=== PATIENT | male | born 1990 | race Caucasian/White ===

== ENCOUNTER 2024-12-19 16:13 | Emergency (ER) | payer MEDICAID, SELFPAY ==
[2024-12-19 16:13] VITALS: BP 134/86; PULSE 92; RESP 15; TEMP 36.6; O2SAT 98; BMI 22.3
--- NOTE | 2024-12-19 16:27 | EX.ED.DYSGE1 ---
HPI History of Present Illness Chief Complaint: Rash Informant: patient Onset/Context/Timing Onset: Days (3-4) Context: Sudden Onset Timing: Continuous Quality: Burning, stabbing Location: Right back and lower chest Worsened by: Nothing Relieved by: Nothing Narrative Narrative: Patient presents with a rash that has been constant for the past 3 to 4 days. Patient states it started on his back and is now starting to migrate around to his right lower chest area. Patient describes it as burning and stabbing. Patient admits to some blister formation. Patient denies any discharge or drainage. Patient denies any fevers or chills. Patient states he went to an urgent care last night and was told it was a staph infection. Patient was given a prescription for doxycycline. Patient is concerned this could be shingles. PFSH [facility] Medical History no medical history no medical history Home Medications ?Medication ?Instructions ?Recorded ?Last Taken ?Type acyclovir 800 mg tablet 800 mg PO 5X/DAY #35 TABLETS 12/19/24 Unknown Rx Allergy/AdvReac Type Severity Reaction Status Date / Time Sulfa (Sulfonamide Allergy Severe Rash Verified 12/19/24 16:16 Antibiotics) Family History no significant family his Surgical History no surgical history no surgical history Social History (Updated 12/19/24 @ 16:[address] Jose E Cifuentes, DO) Smoking Status: Never smoker Smokeless tobacco user: snuff ROS ROS ED Constitutional Constitutional ED: Denies chills or fever(s) Eyes Eyes: Denies blurry vision or change in vision ENT ENT ED: Reports sore throat; Denies rhinorrhea Cardiovascular Cardiovascular: Reports chest pain; Denies palpitations Respiratory/Chest Respiratory/Chest: Denies cough or dyspnea Gastrointestinal Gastrointestinal: Denies nausea or vomiting Genitourinary Genitourinary ED: Denies dysuria or hematuria Musculoskeletal Musculoskeletal: Reports back pain; Denies neck pain Integumentary Reports rash; Denies abscess Neurologic Neurologic: Denies headache(s) or weakness Allergic/Immunologic Allergic/Immunologic ED: Denies mouth swelling or urticaria EXAM Physical Exam Const Vital Signs: 12/19/24 16:13 Temperature 98 F Temperature Source Oral Pulse Rate 92 Respiratory Rate 15 Blood Pressure 134/86 H Blood Pressure Mean 102 Pulse Ox 98 Oxygen Delivery Method Room Air Positive well nourished and well developed General Appearance ED: well developed and NAD HEENT Reports moist mucous membranes Neck supple and no JVD GI non-tender and non-distended Palpation: soft Extremity normal to inspection General Extremety ED: Negative for edema or tenderness General Extremity: Negative for edema Neuro oriented x3, CN's II-XII intact bilaterally and no sensory deficits noted Sensorium / Orientation: alert Motor Exam: strength 5/5 throughout Psych mental status grossly normal Skin Skin Narrative: There is a patchy erythematous macular rash along the right T7 dermatome. There is mild tenderness to palpation. There are no vesicles or pustules. There is no discharge or drainage noted. There are no petechia noted. There is no involvement of the palms or soles. There is no involvement of mucous membranes. MDM MDM MDM Narrative Medical decision making narrative: Patient was advised that this is most likely shingles. Patient was given a prescription for acyclovir. Patient was instructed to use Tylenol or ibuprofen as needed for pain. Patient was also instructed to use Zostrix cream as needed for pain. Patient was instructed to follow-up with a primary care physician in 5 to 7 days. Patient was instructed to return if worse in any way. Patient understood and was agreeable with the plan. All questions were answered. Discharge Plan Triage Chief Complaint: Rash ED Provider: Jose E Cifuentes Dx/Rx/DC Orders Clinical Impression: Varicella zoster Instructions: ED Shingles (Herpes Zoster) Prescriptions: New acyclovir 800 mg tablet 800 mg PO 5X/DAY Qty: 35 0RF Primary Care Provider: Care Physician,No Primary Referrals: Gonzales Gamboa MD [[employer]] - 5-7 Days Care Physician,No Primary [Primary Care Provider] - Activity Restrictions/Additional Instructions: You may use Zostrix cream as needed for pain. You may take Tylenol or ibuprofen as needed for pain as well. Print Language: Gambian Disposition Disposition: Home, Self Care
[2024-12-19 16:44] VITALS: BP 134/86; PULSE 92; RESP 15; TEMP 36.6; O2SAT 98
== END 2024-12-19 16:44 | disposition home or self-care (01) ==
LOC: ED 16:41
PROVIDERS: Emergency Provider Emergency Medicine; Visit Provider Emergency Medicine
DX: R21 Rash and other nonspecific skin eruption (principal)
CPT/HCPCS: 99282

== ENCOUNTER 2025-01-06 19:15 | Emergency (ER) | payer MEDICAID, SELFPAY ==
[2025-01-06 19:17] VITALS: PULSE 95; RESP 16; TEMP 36.2; O2SAT 100; BMI 22.4
--- NOTE | 2025-01-06 20:45 | US_ITS ---
PROCEDURE: GALLBLADDER 01/06/2025 REASON FOR EXAM: Pain after eating Duration: 2 weeks COMPARISON: None. FINDINGS: Liver: Unremarkable. No intrahepatic ductal dilatation. Normal hepatic color flow. Gallbladder: Gallbladder length is 5.1 cm. Gallbladder is contracted. Sonographic Batres's sign is absent. No gallstones detected. No pericholecystic fluid. Gallbladder wall: 2 mm. Common bile duct: 6 mm . Pancreas: Normal. Other: Right kidney demonstrates normal length, size and cortex. No calculi identified. Kidney measures 9.8 cm x 4.3 cm x 3.8 cm. Right renal pelvis 9.8 mm. This may be an extrarenal pelvis. US/Gallbladder IMPRESSION: No acute process detected. Normal gallbladder. Reading [facility]
--- NOTE | 2025-01-06 20:46 | EDS_ITS ---
HPI HPI - GI History of Present Illness Chief Complaint: Abd Pain Narrative Narrative: 34-year-old male who denies significant past medical history presents with right upper quadrant abdominal pain that he has been having intermittently for the last week. He has not noticed that it is directly related to food intake. However, he states that last night he ate spaghetti, and he awoke in the middle of the night with his mouth watering and him feeling nauseated. He has not vomited. He denies any fevers or chills, no radiation of the pain but it is up under his right rib cage. No recent diarrhea. No prior abdominal surgeries. He does state that a few people have noticed that they thought he had scleral icterus. No exacerbating or alleviating factors. Sometimes the pain is sharp and stabbing, and other times it is dull and achy. PFSH PFSH Medical History no medical history Home Medications ?Medication ?Instructions ?Recorded ?Last Taken ?Type NK 01/06/25 Unknown History Allergy/AdvReac Type Severity Reaction Status Date / Time Sulfa (Sulfonamide Allergy Severe Rash Verified 01/06/25 19:16 Antibiotics) Social History Smoking Status: Never smoker Smokeless tobacco user: snuff ROS ROS ED ROS Narrative Review of systems positive for right upper quadrant abdominal pain associated with nausea, no fevers or chills, no diarrhea. No exacerbating or alleviating factors. Described as sharp and stabbing and sometimes dull and achy. EXAM Physical Exam Narrative Exam Narrative: Afebrile. Vital signs noted. Nontoxic-appearing. No scleral icterus appreciated. PERRL, EOMI. Neck soft and supple without meningismus. Cardiovascular examination regular rate and rhythm. Lungs clear to auscultation bilaterally. Abdomen is soft with mild tenderness to palpation in the right upper quadrant. Negative Batres sign/difficult to elicit. No rebound or guarding. Positive bowel sounds. Const Vital Signs: 01/06/25 19:17 01/06/25 21:10 01/06/25 21:10 Temperature 97.2 F L Temperature Source Temporal Pulse Rate 95 75 Respiratory Rate 16 16 Blood Pressure 118/73 118/72 Blood Pressure Mean 88 87 Pulse Ox 100 99 MDM MDM MDM Narrative Medical decision making narrative: The differential diagnosis includes but not limited to acute cholecystitis versus pancreatitis versus nonspecific abdominal pain versus hepatitis. Comprehensive workup was pursued. I reviewed his laboratory work and he has normal white count of 10.4 with hemoglobin normal at 15.1, hematocrit 43.4, platelet count normal at 283. CMP shows normal sodium, normal potassium, normal chloride, BUN of 9 and creatinine 1.06. LFTs grossly unremarkable. Total bilirubin normal at 0.27. Lipase normal at 31 so I doubt pancreatitis. Urinalysis obtained and there is no evidence of ketones, no dehydration, no infection. I do not feel antibiotics are indicated. Ultrasound of the right upper quadrant is currently pending. Patient will be signed out to Dr. Jairon Wray to check the ultrasound and make final disposition on this patient which I anticipate would be discharged given normal findings. Patient is in stable condition. Lab Data Attestation: I reviewed the patient's lab results. Labs: Laboratory Results - last 24 hr 01/06/25 01/06/25 20:38 20:53 WBC 10.4 RBC 5.04 Hgb 15.1 Hct 43.4 MCV 86.1 MCH 30.0 MCHC 34.8 RDW Std Deviation 39.4 RDW Coeff of [place] 12.8 Plt Count 283 MPV 8.6 Immature Gran % (Auto) 0.400 Neut % (Auto) 67.2 Lymph % (Auto) 23.2 [place] % (Auto) 6.9 Eos % (Auto) 1.4 Baso % (Auto) 0.9 Absolute Neuts (auto) 7.0 Absolute Lymphs (auto) 2.40 Nucleated RBC % 0 Sodium 142 Potassium 3.6 Chloride 105 Carbon Dioxide 23.5 Anion Gap 13 BUN 9 Creatinine 1.06 Estim Creat Clear Calc 93.86 Est GFR (MDRD) Non-Af 95 BUN/Creatinine Ratio 8.9 L Glucose 77 Calcium 9.7 Total Bilirubin 0.27 AST 23 ALT 13 Alkaline Phosphatase 73 Total Protein 8.0 Albumin 4.5 Globulin 3.5 Albumin/Globulin Ratio 1.3 Lipase 31 Urine Color Yellow Urine Clarity Clear Urine pH 7.0 Ur Specific [place] 1.015 Urine Protein 15 H Urine Glucose (UA) Normal Urine Ketones Negative Urine Occult Blood Negative Urine Nitrite Negative Urine Bilirubin Negative Urine Urobilinogen Normal Ur Leukocyte Esterase Negative Urine RBC 0-5 SEEN Urine WBC 0-5 SEEN Ur Squamous Epith Cells 0-5 SEEN Urine Bacteria 0 SEEN Urine Mucus 0 SEEN Discharge Plan Triage Chief Complaint: Abd Pain ED Provider: Harsh Forrest Dx/Rx/DC Orders Clinical Impression: Abdominal pain, right upper quadrant, Nausea Instructions: ED Abdominal Pain Unkn Cause Male... Prescriptions: No Action NK Primary Care Provider: Care Physician,No Primary Referrals: Care Physician,No Primary [Primary Care Provider] - Print Language: Andorran
[2025-01-06 20:52] LABS: Hematocrit 43.4 % (40-54); Hemoglobin 15.1 g/dL (13.0-16.5); Immature Granulocytes Count 0.040 X10^3/uL (0.0-0.0); Mean Corp Hgb Conc 34.8 g/dL (32-36); Mean Corpuscular Volume 86.1 fL (80-94); Mean Platelet Vol. 8.6 fl (6.2-12.0); NRBC Flagged by Analyzer 0 % (0-5); Platelet Count 283 K/mm3 (150-450); RBC Distribution Width CV 12.8 % (11.6-14.6); RBC Distribution Width SD 39.4 fl (35.1-43.9); Red Blood Count 5.04 M/mm3 (4.6-6.2); White Blood Count 10.4 K/mm3 (4.4-11.0)
--- OUTSIDE RECORDS SUMMARY | 2025-01-06 21:00 | XMS RPT_ITS | CCD ---
Author Organization [facility] TRUSS DESIGNER [facility] Care Team Providers Care Wrapping Machine Tender Name Role Phone Unavailable Primary Care Provider Unavailabl e PROVIDER, UNKNOWN Attending Unavailable PROVIDER, UNKNOWN Admitting Unavailable PATIENT, SELF Referring Unavailable PHYSICIAN, PATIENT UNSURE Primary Care Physician Unavailable SUSHMA SOTELO DO Primary Care Unavailable DIDSUSHMA SNEED DO Attending Unavailable UNGERERGEORGE INFORMATION OPERATOR Consulting Unavailable UNGERERGEORGE INFORMATION OPERATOR Referring Unavailable DIDSUSHMA SNEED DO Admitting Unavailable PROVIDER, UNKNOWN Consulting Unavailable SHAILA ZAMUDIO DO Admitting Unavailable SHAILA ZAMUDIO DO Primary Care Unavailable SHAILA ZAMUDIO DO Attending Unavailable STEFANO PEDRAZA MD Admitting Unavailable STEFANO PEDRAZA MD Primary Care Unavailable STEFANO PEDRAZA MD Attending Unavailable UNGERER, GEORGE INFORMATION OPERATOR Consulting Unavailable UNGERER, GEORGE INFORMATION OPERATOR Referring Unavailable PROVIDER, UNKNOWN Consulting Unavailable DIDSUSHMA SNEED DO Attending Unavailable UNGERER, GEORGE INFORMATION OPERATOR Consulting Unavailable UNGEREHilda, GEORGE INFORMATION OPERATOR Referring Unavailable SUSHMA SOTELO DO Admitting Unavailable DIDSUSHMA SNEED DO Primary Care Unavailable PROVIDER, UNKNOWN Consulting Unavailable PHYSICIAN, PATIENT UNSURE Primary Care Unavai CELESTINO Rosenberg Attending Unavail able CELESTINO NGO Attending Unavail able PHYSICIAN, PATIENT UNSURE Primary Care Unavai lable PHYSICIAN, PATIENT UNSURE Primary Care Unavai lable CELESTINO NGO Attending Unavail able Care Physician, No Primary Primary Care Provider Unavailable Dr. Jose E Cifuentes DO Emergency Provider Jose E Cifuentes Attending Unavailable Care Physician, No Primary Primary Care Unava ilable Allergies Allergy Classification Reported Allergen(s) Allergy Type Date of Onset Reaction(s) Facility (2 sources) Sulfonamides (Antibiotic); Translations: [SULFA ANTIBIOTICS] Propensity to adverse reactions to drug 2 Rash, [facility]: (2 sources) Sulfonamide; Translations: [sulfa drugs] Drug allergy [facility] (1 source) Sulfonamides (Antibiotic) Drug allergy (disorder) [facility] Repository (1 source) Sulfonamides (Antibiotic) Allergy to substance [address] [place] [address] (1 source) Sulfonamides (Antibiotic) Drug allergy (disorder) [address] [place] [address] Repository Medications Current Medications Medication Drug Class(es) Dates Sig (Normalized) Sig (Original) 0.16 ML buprenorphine 50 MG/ML Prefilled Syringe [Brixadi] (2 sources) Start: 10-20-2024 Brixadi Weekly 8 mg/0.16 mL subcutaneous solution, extended release 0 Refill(s) Start Date: 10/20/24 Status: Ordered Repeat number: 1 acyclovir 800 mg oral tablet (1 source) Herpesvirus Nucleoside Analog DNA Polymerase Inhibitor, Herpes Simplex Virus Nucleoside Analog DNA Polymerase Inhibitor, Herpes Zoster Virus Nucleoside Analog DNA Polymerase Inhibitor Start: 12-19-2024 take 1 tablet by mouth five times daily Acyclovir 800 mg tablet Active 800 mg PO 5 TIMES DAILY 35 0 December 19, 2024 12:00am ciprofloxacin 500 mg oral tablet (1 source) Quinolone Antimicrobial Start: 10-20-2024 End: 11-03-2024 Cipro 500 mg oral tablet Dose : 500 mg = 1 tab(s), Oral, q12h, X 14 day(s), # 28 tab(s), 0 Refill(s), 11/03/24 3:35:00 PM EDT, Pharmacy: [id number], Dysuria Pelvic pain in male, 172.7, cm, 10/20/24 15:01:00 EDT, Height, 67.7, kg, 10/20/24 15:01:00 EDT, Dosing Weight Start Date: 10/20/24 Stop Date: 11/03/24 Status: Ordered Quantity: 28.0 Unit: tab(s) Repeat number: 1 Indications: Pelvic and perineal pain; Dysuria; traZODone hydrochloride 100 mg oral tablet (2 sources) Serotonin Reuptake Inhibitor Start: 10-20-2024 take 1 tablet by mouth once daily at bedtime traZODone 100 mg oral tablet TAKE 1 TABLET BY MOUTH EVERY DAY AT BEDTIME Start Date: 10/20/24 Status: Ordered Repeat number: 1 Problems Active Problems Problem Classification Problem Date Documented Da te Episodic/Chronic Abdominal pain (1 source) Pain in pelvis; Translations: [Pelvic and perineal pain] Episodic Calculus of urinary tract (2 sources) Ureteric stone 10-20-2024 Episodic Genitourinary symptoms and ill-defined conditions (2 sources) Dysuria 10-20-2024 Episodic Other gastrointestinal disorders (2 sources) Constipation 10-20-2024 Episodic Other injuries and conditions due to external causes (2 sources) Retained stone or crystalline fragments; Translations: [Retained stone or crystalline fragments] Onset: 10-20-2024 Episodic Other male genital disorders (3 sources) Hemospermia; Translations: [Hematospermia] Episodic Other skin disorders (1 source) Rash and other nonspecific skin eruption; Translations: [Rash and other nonspecific skin eruption] Onset: 12-25-2024 Episodic Unclassified (2 sources) Finding of sensation of bladder 10-20-2024 Viral infection (1 source) Varicella-zoster virus infection; Translations: [Zoster without complications] 12-19-2024 Episodic Past or Other Problems Problem Classification Problem Date Documented Date Episodic/Chronic Nonspecific chest pain (3 sources) Other chest pain; Translations: [Other chest pain] Onset: 05-08-2024 Episodic Other diseases of kidney and ureters (4 sources) Hydronephrosis with renal and ureteral calculous obstruction; Translations: [Hydronephrosis with renal and ureteral calculous obstruction] Onset: 05-08-2024 Episodic Results Test Name Value Interpretation Reference Range Facility Emergency Department Summary on 12-19-2024 Emergency Department Summary [facility] Medical Records Department [address] [place] [id number] Emergency Department Summary 12/19/24 MR#: [id number] Acct: [id number] Name: FLORECITA SPEARS Rep #: [id number] : 1990 34 From: Jose E Cifuentes DO PCP: Care Physician,No Primary Status:DEP ER Location: ED HPI History of Present Illness Chief Complaint: Rash Informant: patient Onset/Context/Timing Onset: Days (3-4) Context: Sudden Onset Timing: Continuous Quality: Burning, stabbing Location: Right back and lower chest Worsened by: Nothing Relieved by: Nothing Narrative Narrative: Patient presents with a rash that has been constant for the past 3 to 4 days. Patient states it started on his back and is now starting to migrate around to his right lower chest area. Patient describes it as burning and stabbing. Patient admits to some blister formation. Patient denies any discharge or drainage. Patient denies any fevers or chills. Patient states he went to an urgent care last night and was told it was a staph infection. Patient was given a prescription for doxycycline. Patient is concerned this could be shingles. PFSH PFSH Medical History no medical history no medical history Home Medications ???Medication ???Instructions ???Recorded ???Last Taken ???Type acyclovir 800 mg tablet 800 mg PO 5X/DAY #35 TABLETS 12/19 Unknown Rx Allergy/AdvReac Type Severity Reaction Status Date / Time Sulfa (Sulfonamide Allergy Severe Rash Verified 12/19/24 16:16 Antibiotics) Family History no significant family his Surgical History no surgical history no surgical history Social History (Updated 12/19/24 @ 16:[address] Jose E Cifuentes, DO) Smoking Status: Never smoker Smokeless tobacco user: snuff ROS ROS ED Constitutional Constitutional ED: Denies chills or fever(s) Eyes Eyes: Denies blurry vision or change in vision ENT ENT ED: Reports sore throat; Denies rhinorrhea Cardiovascular Cardiovascular: Reports chest pain; Denies palpitations Respiratory/Chest Respiratory/Chest: Denies cough or dyspnea Gastrointestinal Gastrointestinal: Denies nausea or vomiting Genitourinary Genitourinary ED: Denies dysuria or hematuria Musculoskeletal Musculoskeletal: Reports back pain; Denies neck pain Integumentary Reports rash; Denies abscess Neurologic Neurologic: Denies headache(s) or weakness Allergic/Immunologic Allergic/Immunologic ED: Denies mouth swelling or urticaria EXAM Physical Exam Const Vital Signs: 12/19/24 16:13 Temperature 98 F Temperature Source Oral Pulse Rate 92 Respiratory Rate 15 Blood Pressure 134/86 H Blood Pressure Mean 102 Pulse Ox 98 Oxygen Delivery Method Room Air Positive well nourished and well developed General Appearance ED: well developed and NAD HEENT Reports moist mucous membranes Neck supple and no JVD GI non-tender and non-distended Palpation: soft Extremity normal to inspection General Extremety ED: Negative for edema or tenderness General Extremity: Negative for edema Neuro oriented x3, CN's II-XII intact bilaterally and no sensory deficits noted Sensorium / Orientation: alert Motor Exam: strength 5/5 throughout Psych mental status grossly normal Skin Skin Narrative: There is a patchy erythematous macular rash along the right T7 dermatome. There is mild tenderness to palpation. There are no vesicles or pustules. There is no discharge or drainage noted. There are no petechia noted. There is no involvement of the palms or soles. There is no involvement of mucous membranes. MDM MDM MDM Narrative Medical decision making narrative: Patient was advised that this is most likely shingles. Patient was given a prescription for acyclovir. Patient was instructed to use Tylenol or ibuprofen as needed for pain. Patient was also instructed to use Zostrix cream as needed for pain. Patient was instructed to follow-up with a primary care physician in 5 to 7 days. Patient was instructed to return if worse in any way. Patient understood and was agreeable with the plan. All questions were answered. Discharge Plan Triage Chief Complaint: Rash ED Provider: Jose E Cifuentes Dx/Rx/DC Orders Clinical Impression: Varicella zoster Instructions: ED Shingles (Herpes Zoster) Prescriptions: New acyclovir 800 mg tablet 800 mg PO 5X/DAY Qty: 35 0RF Primary Care Provider: Care Physician,No Primary Referrals: Gonzales Gamboa MD [Med Staff - Landscape Crew Member] - 5-7 Days Care Physician,No Primary [Primary Care Provider] - Activity Restrictions/Additiona l Instructions: You may use Zostrix cream as needed for pain. You may take Tylenol or ibuprofen as needed for pain as well. Print Language: Serbian Disposition Disposition: Home, Michelle (more content not included)... Normal [facility] CT ABDOMEN/PELVIS W/O CONTRA Annita 11-14-2024 CT ABDOMEN/PELVIS W/O CONTRAST ORIGINAL EXAMINATION: CT OF THE ABDOMEN AND PELVIS WITHOUT CONTRAST11/14/2024 1:49 pm TECHNIQUE: CT of the abdomen and pelvis was performed without the administration of intravenous contrast. Multiplanar reformatted images are provided for review. Automated exposure control, iterative reconstruction, and/or weight based adjustment of the mA/kV was utilized to reduce the radiation dose to as low as reasonably achievable. COMPARISON: None HISTORY: ORDERING SYSTEM PROVIDED HISTORY: Reason for Exam: hx of kidney stones, persistent dysuria, feels he has not passed stones FINDINGS: The included lung bases are clear. There is no visible pleural or pericardial effusion. The heart is normal in size. The liver, spleen, adrenal glands, kidneys, gallbladder and pancreas are within normal limits. The large and small bowel are normal in course and caliber. Mild sigmoid diverticulosis observed without acute inflammatory changes. The appendix is normal. No free intraperitoneal fluid or air is identified. The aorta is normal in caliber. There is no lymphadenopathy. The prostate is normal. There is no visible fracture or aggressive osseous lesion. IMPRESSION: 1. No acute intra-abdominal or pelvic process. 2. Mild sigmoid diverticulosis. Interpreted by: Dylan Wood DO Preliminary Report By: Dylan Wood DO Electronically signed By Dylan Wood DO Dictated Date: 11/14/2024 1:55:57 PM Prelim Date: 11/14/2024 1:59:34 PM Sign Date: 11/14/2024 1:59:34 PM Ordering Provider: CELESTINO HAMM Interpreted by: Dylan Wood DO Preliminary Report By: Dylan Wood DO Electronically signed By Dylan Wood DO Dictated Date: 11/14/2024 1:55:57 PM Prelim Date: 11/14/2024 1:59:34 PM Sign Date: 11/14/2024 1:59:34 PM Ordering Provider: CELESTINO HAMM [facility] 10-28-2024 CaOx Dihydrate 50 % [facility] Comment on above: Result Comment: Perf ormed At: [facility] [id number] Makenzie Belle PhD Ph:[phone] Performed By: #### [id number] #### [place] [address] CaOx Monohydrate 50 % [facility] Comment on above: Performed By: #### 9 [id number] #### [place] [address] Color-Stone Brown [facility] Comment on above: Performed By: #### 9 [id number] #### [place] [id number] Size-Stone 2x2 [facility] Comment on above: Result Comment: Leo alexander piece received. Performed By: #### 9 [id number] #### [facility] [address] [place] [id number] Source-Stone Comment [facility] Comment on above: Result Comment: Not provided Performed By: #### 9 [id number] #### [facility] [address] [place] [id number] Weight-Stone 2 mg [facility] Comment on above: Performed By: #### 9 [id number] #### [facility] [address] [place] [address] ED MED ADMINISTRATION DETAIL on 10-21-2024 ED MED ADMINISTRATION DETAIL Straddle Carrier Operator Medication Administration Record [address] [place] [address] [id number] 10/21/2024 Patient: FLORECITA SPEARS Sex: Male : 1990 Age: 34y MEASUREMENTS: Wt: 68.0 kg, Ht/Honorio: 68.0 in, BMI: 22.81 ALLERGIES: Sulfa (Sulfonamide Antibiotics) Medication Ordered Medication Administration Date/Time Tdap IM 22:36 10/21 Tdap IM DIPTH/TETANUS/PERT > 7yr and older 0.5 Given DIPTH/TETANUS/P mL given. (Lot#: [id number], expiration date: 01/12/2027, kettle worker: 22:36 10/21/2024 ERT > 7yr and older Aula 7). Given in the left deltoid. Allergies verified and Stephanie Bennett R.N. 0.5 mL (NOW x1) confirmed 5 rights. Information reviewed with patient. Verbalizes Scanned understanding. Vaccine information statement (10/21/2024) provided to the patient. - 22:36 Stephanie Bennett R.N. Triple Antibiotic Completed Oint 22:42 10/21/2024 (Zkwl-Uzga-Ppwf B) Stephanie Bennett R.N. 1 applic Order Comments: 22:42 10/21/2024 Order Completed Stephanie Bennett R.N. 1 of 1 Normal [facility] ED NURSES CLINICAL NOTEon ED NURSES CLINICAL NOTE Nurse Narrative Nurse Clinical Narrative [address] [place] [address] [phone] 10/21/2024 22:03:00 [id number] Sex[facility] Male : 1990 Age: 34y Disposition: Discharge to Home Disposition Decision Time: 22:41 10/21/2024 Departure Time: 22:53 10/21/2024 TRIAGE Arrived by private vehicle. Historian: (patient). Unaccompanied. Triage time: 22:01 10/21/2024. Acuity: LEVEL 4. Chief Complaint: DOG BITE. Location of injuries: nose. Occurred 21:00 10/21/2024. Circumstances: This was an unprovoked attack. The animal reportedly appeared well and the immunization status of the animal is unknown. SEPSIS SCREEN: NEGATIVE. SIRS criteria negative. No possible sources of infection. -- 22:16 10/21/24 BRIAN Bennett R.N. 22:11 10/21/24. BP: 124/89 MAP: 101. HR: 84. RR: 14. O2 saturation: 97% Temperature: 98.3 F. -- 22:12 10/21/24 BRIAN Bennett R.N. 22:17 10/21/24. Pain level now 9/10. -- 22:17 10/21/24 BRIAN Bennett R.N. Measurements: 22:16 10/21/24 Wt: 68.0 kg, Ht/Honorio: 68.0 in, BMI: 22.81 -- 22:16 10/21/24 BRIAN eBnnett R.N. Medications: ciprofloxacin 500 mg tablet -- 22:18 10/21/24 BRIAN Bennett R.N. 1 of 3 Nurse Narrative Allergies: Sulfa (Sulfonamide Antibiotics) -- 22:14 10/21/24 BRIAN Bennett R.N. Problems: no known problem -- 22:15 10/21/24 BRIAN Bennett R.N. Surgeries: no known surgical history -- 22:15 10/21/24 BRIAN Bennett R.N. History 22:01 10/21/24. SOCIAL HX: Never smoker. No alcohol use or drug use. The patient has not traveled outside the [place] Infectious disease exposure: No infectious disease exposure. ABUSE ASSESSMENT: The patient answered yes to the question(s) Do you feel safe in your home? and no to the question(s) Are you afraid to go home?. SELF HARM ASSESSMENT: Self harm assessment was performed. The patient answered no to the question(s) Have you recently felt down, depressed, or hopeless? and Do you have thoughts of harming or killing yourself?. FALL RISK ASSESSMENT: Fall risk assessment completed. No risk factors identified. -- 22:16 10/21/24 BRIAN Bennett R.N. Interventions 22:01 10/21/24. Identification band and allergy band on patient. -- 22:16 10/21/24 BRIAN Bennett R.N. PHYSICAL ASSESSMENT 22:05 10/21/24. Ambulatory to room. GENERAL / NEURO / PSYCH: Alert. Oriented X 4. Appears in no acute distress. HEENT: Pupils equal, round and reactive to light. Nose: tenderness, swelling and subcutaneous laceration. RESPIRATORY: Respirations not labored. 2 of 3 Nurse Narrative GI / : Abdomen soft and nontender. EXTREMITIES: Extremities exhibit normal ROM. Neuro-vascular status intact to the extremity. SKIN: Skin is warm and dry. No signs or symptoms of infection. -- 22:55 10/21/24 BRIAN Bennett R.N. NURSING PROGRESS NOTES 22:15 10/21/24. ( Dog bite form faxed to [facility] and [facility] at this time). -- 22:57 10/21/24 BRIAN Bennett R.N. 22:36 10/21/24. Tdap IM DIPTH/TETANUS/PERT > 7yr and older 0.5 mL given. (Lot#: [id number], expiration date: 01/12/2027, kettle worker: Aula 7). Given in the left deltoid. Allergies verified and confirmed 5 rights. Information reviewed with patient. Verbalizes understanding. Vaccine information statement (10/21/2024) provided to the patient. -- 22:36 10/21/24 BRIAN Bennett R.N. 22:40 10/21/24. ( Nose cleaned, ointment and bandage applied to nose). -- 22:55 10/21/24 BRIAN Bennett R.N. DISPOSITION / DISCHARGE Departure time: 22:53 10/21/2024. -- 22:53 10/21/24 EDT Stephanie Bennett R.N. 22:53 10/21/24. Condition at departure: stable. No learning barriers present. Reviewed medication(s). Reviewed referral to a primary care physician. Patient verbalized understanding. Written instructions provided in Serbian. The patient was discharged home and accompanied by gambling counsellor. The patient left ambulatory and via private vehicle. Staff Pharmacist driving. -- 22:53 10/21/24 EDT Stephanie Bennett R.N. (Electronically signed by Stephanie Bennett R.N. 10/21/24 22:57:28 EDT) Generated by [facility] 3 of 3 Normal [facility] ED ORDER SHEET (CPOE ONLY)on 10-21-2024 ED ORDER SHEET (CPOE ONLY) Order Sheet Order Sheet [address] [address] [id number] 10/21/2024 Patient: FLORECITA SPEARS Sex: Male : 1990 Age: 34y MEASUREMENTS: Wt: 68.0 kg, Ht/Honorio: 68.0 in, BMI: 22.81 ALLERGIES: Sulfa (Sulfonamide Antibiotics) MEDICATION/IV/DRIP/FLU ID ORDERS Order Description Priority Entered Acknowledged Completed Tdap IM DIPTH/TETANUS/PERT 22:25 10/21/2024 22:36 > 7yr and older0.5 mL (NOW x1) Shaila Zamudio D.O. 10/21/2024 Stephanie Bennett R.N. Triple Antibiotic Oint 22:25 10/21/2024 22:42 (Isdr-Dyzr-Rxsj B)1 applic Shaila Zamudio D.O. 10/21/2024 (NOW x1) Stephanie Bennett R.N. Order Comments: 22:42 10/21/2024: Order Completed Stephanie Bennett R.N. LAB ORDERS Order Description Priority Entered Acknowledged Collected Completed DIAGNOSTIC STUDY ORDERS Order Description Priority Entered Acknowledged Completed STAFF ORDERS Order Description Priority Entered Acknowledged Collected Completed 1 of 2 Order Sheet [Electronically signed by Shaila Zamudio D.O. (10/21/2024 22:25 EDT)] [Electronically signed by Shaila Zamudio D.O. (10/21/2024 22:25 EDT)] [Electronically signed by Shaila Zamudio D.O. (10/21/2024 22:58 EDT)] 2 of 2 Normal [facility] ED PHYSICIAN CLINICAL REPORT on 10-21-2024 ED PHYSICIAN CLINICAL REPORT Narrative Physician Clinical Narrative [facility] [address] [place] [address] [phone] 10/21/2024 22:03:00 Patient: FLORECITA SPEARS Sex: Male : 1990 Age: 34y Disposition: Discharge to Home Disposition Decision Time: 22:41 10/21/2024 Departure Time: 22:53 10/21/2024 Measurements Wt: 68.0 kg, Ht/Honorio: 68.0 in, BMI: 22.81 Initial Vital Sign Measured Time BP MAP HR RR O2Sat ETCO2 Temp Pain GCS RTS 22:11 10/21/2024 124/89 101 84 14 97% 98.3 F Time Seen: 22:23 10/21/2024. Arrived- By private vehicle. Historian- patient. HISTORY OF PRESENT ILLNESS Chief Complaint: DOG BITE. Location of injuries- nose. The injury occurred just prior to arrival. The animal reportedly appeared well, is up to date on immunizations and can be observed for ten days. Occurred at neighbor's house. Patient approached animal. REVIEW OF SYSTEMS CONSTITUTIONAL: No fever or chills. MUSCULOSKELETAL: No swelling. NEUROLOGICAL: No weakness. PAST HISTORY See nurses notes. 1 of 3 Narrative no known problem Surgeries: no known surgical history Medications: ciprofloxacin 500 mg tablet Allergies: Sulfa (Sulfonamide Antibiotics) SOCIAL HISTORY Never smoker. Alcohol use. Drug use. ADDITIONAL NOTES The nursing notes have been reviewed. PHYSICAL EXAM Appearance: Alert. No acute distress. Head: (abrasion present to tip of nose. No active bleeding.). Eyes: Eyes normal inspection. Neck: Normal inspection. CVS: Heart sounds normal. Pulses normal. Respiratory: Breath sounds normal. Chest nontender. Abdomen: Normal inspection. Soft and nontender. Skin: Skin intact. Skin warm and dry. Normal skin color. Normal skin turgor. Extremities: Extremities atraumatic. Neuro: Oriented X 3. PROGRESS AND PROCEDURES Course of Care: Patient is stable. Differential Diagnosis: 2 of 3 Narrative Other possible considerations: Dog bite versus laceration versus infection. MEDICAL DECISION MAKING: (34 yo male presents with a dog bite to the nose. He was bitten by his friends dog, he believes it is up to date on its vaccinations. Discussed it would need to be observed for ten days for any signs of rabies. The bite wound appears to be a skin abrasion, no sutures indicated. The patients wound was cleaned and covered with bacitracin ointment. He is currently on Clindamycin for prostatitis and started this yesterday. This antibiotic will also cover for infection prevention so he was not given any further antibiotics. He does not know when his last tetanus was updated so this will be updated her. He was cleared for discharge with close follow up with his PCP.). Disposition: Condition: stable. Discharged in stable condition. Discharge decision based on the following: patient's condition is stable. CLINICAL IMPRESSION Single superficial dog bite to the nose. DISCHARGE INSTRUCTIONS Prescription Medications: Antibiotic(neomy-bacit -polym) 3.5 mg-400 unit-5,000 unit/gram top oint: Apply a small amount to affected area twice a day, dispense 28 gram. Refills 0. Pharmacy: [facility] [phone] [place] [address]. Follow-up: Return to the emergency department as needed. Understanding of the discharge instructions verbalized by patient. Follow-up with: Neena Leija DNP, WARDROBE ATTENDANT, TRANSFER COORDINATOR-C, [facility], Family [facility], Phone: [phone], [address], [place] [address]. Follow up in two days. Call for an appointment. (Electronically signed by Shalia Zamudio D.O. 10/21/24 22:58:54 EDT) Generated by [facility] 3 of 3 Normal [facility] ED [facility] BILL 10-21-2024 ED [facility] [address] [place] [address] [id number] 10/21/2024 Patient: FLORECITA SPEARS Sex: Male : 1990 Age: 34y Item Professional Category Description Facility Code Code Quantity Fee Total Nurse/E/M EMERGENCY 601682 1 $0.00 $0.00 DEPARTMENT VISIT LOW/MODER SEVERITY (37814-49) Nurse/Procedures One vaccine [id number] 1 $0.00 $0.00 (86610) Grand Total $0.00 Providers Shaila Zamudio D.O. Chief Complaint DOG BITE. Principal Diagnosis Single superficial dog bite to the nose. 1 of 2 Superbill ICD-10 Codes S00.37xA: Other superficial bite of nose, initial encounter 2 of 2 Normal [facility] ED VISIT SUMMARYon ED VISIT SUMMARY Visit Overview Visit Overview [id number] [facility] [place] [address] [id number] 10/21/2024 Patient: FLORECITA SPEARS Sex: Male : 1990 Age: 34y 10/21/2024 10:58 PM EDT ED Arrival:22:03 10/21/2024 EDT Status: Recent Travel:no Language:eng Adv Directive: Isolation Status: Ethnicity:N Fall Risk:no risk Infectious Disease Exposure:no Measurements:5'8 / 172.7 Self-Harm Status:risk Sepsis Screen:negative cm 150.0 lb / 68.0 kg Chief Complaint:DOG and (21:00 10/21/2024) ALLERGIES Sulfa (Sulfonamide Antibiotics) HOME MEDICATIONS ciprofloxacin 500 mg tablet PAST MEDICAL HISTORY / PROBLEMS None See nurses notes 1 of 3 Visit Overview PAST SURGICAL HISTORY No Surgeries SOCIAL HISTORY Smoking status: No Alcohol use: No Drug use: No ED COURSE MEDICATIONS GIVEN IN EMERGENCY DEPARTMENT 22:36 10/21/24 Tdap IM DIPTH/TETANUS/PERT > 7yr and older 0.5 mL IV SITE INFORMATION INTAKE OUTPUT REASSESMENT (most recent) 22:05 10/21/24. Ambulatory to room. GENERAL / NEURO / PSYCH: Alert. Oriented X 4. Appears in no acute distress. HEENT: Pupils equal, round and reactive to light. Nose: tenderness, swelling and subcutaneous laceration. RESPIRATORY: Respirations not labored. GI / : Abdomen soft and nontender. EXTREMITIES: Extremities exhibit normal ROM. Neuro-vascular status intact to the extremity. SKIN: Skin is warm and dry. No signs or symptoms of infection. VITAL SIGNS First Vitals Last Vitals Temp 22:11 10/21/24 98.3 F Temp 22:17 10/21/24 BP 22:11 10/21/24 124/89 BP 22:17 10/21/24 HR 22:11 10/21/24 84 HR 22:17 10/21/24 RR 22:11 10/21/24 14 RR 22:17 10/21/24 O2 Sat 22:11 10/21/24 97% O2 Sat 22:17 10/21/24 Pain 22:11 10/21/24 Pain 22:17 10/21/24 9 ETCO2 22:11 10/21/24 ETCO2 22:17 10/21/24 GCS 22:11 10/21/24 GCS 22:17 10/21/24 2 of 3 Visit Overview First Vitals Last Vitals RTS 22:11 10/21/24 RTS 22:17 10/21/24 PROCEDURES NURSING INTERVENTIONS LABS / STUDIES CLINICAL IMPRESSION SINGLE SUPERFICIAL DOG BITE TO THE NOSE 3 of 3 Normal [facility] ED VITALS FLOW SHEETon 10-21 ED VITALS FLOW SHEET Vit[place] [address] [id number] 10/21/2024 Patient: FLORECITA SPEARS Sex: Male : 1990 Age: 34y Measurements Wt: 68.0 kg, Ht/Honorio: 68.0 in, BMI: 22.81 Measured Time BP MAP HR RR O2Sat ETCO2 Temp Pain GCS RTS 22:17 10/21/2024 9 22:11 10/21/2024 124/89 101 84 14 97% 98.3 F 1 of 1 Normal [facility] BMP with eGFRon 05-14-2024 AGE 33 years Normal [facility] Comment on above: Performed By: #### 2 [id number] #### [facility],[address] [place], [place] [id number] Anion gap [Moles/Vol] 16 mmol/L Normal 10 - [facility] Comment on above: Performed By: #### 2 77930 #### [facility],[address] [place] [address] 900[address] BMP with eGFR Normal [facility] Comment on above: Result Comment: BASI C METABOLIC PANEL Performed By: #### 2 06658 #### [facility],[address] [place] [address] 72683 Calcium [Mass/Vol] 8.9 mg/dL Normal 8.5 - 10.1 [facility] Comment on above: Performed By: #### 2 16146 #### [facility],[address] [place] [address] 78608 Chloride [Moles/Vol] 103 mmol/L Normal 98 - 107 [facility] Comment on above: Performed By: #### 2 68611 #### [facility],[address] [place] [address] 85287 CO2 [Moles/Vol] 25.6 mmol/L Normal 21.0 - 32.0 [facility] Comment on above: Performed By: #### 2 30728 #### [facility],[address] [place] [address] 01473 Creatinine [Mass/Vol] 1.08 mg/dL Normal 0.70 - 1.30 [facility] Comment on above: Performed By: #### 2 98347 #### [facility],[address] [place] [address] 66425 GFR/1.73 sq M.predicted among non-blacks MDRD (S/P/Bld) [Vol rate/Area] mL/min/{1.73_m2} Normal 60 - 999 [facility] Comment on above: Performed By: #### 2 77844 #### [facility],[address] [place] [address] 27057 Result Comment: ACCO RDING TO THE NATIONAL KIDNEY DISEASE EDUCATION PROGRAM(NKDE), A NORMAL eGFR IS A VALUE GREATER THAN OR EQUAL TO 60 ML/MIN/1.73 SQ METERS. CHRONIC KIDNEY DISEASE: <60mL/MIN/1.73 SQ METERS KIDNEY FAILURE: <15mL/MIN/1.73 SQ METERS THIS TEST SHOULD ONLY BE USED FOR PATIENTS 18 YEARS OF AGE AND OLDER. Glucose [Mass/Vol] 103 mg/dL Normal 74 - 106 [facility] Comment on above: Performed By: #### 2 57149 #### [facility],[address] [place] [address] 54703 Potassium [Moles/Vol] 3.9 mmol/L Normal 3.5 - 5.1 [facility] Comment on above: Performed By: #### 2 31664 #### [facility],[address] [place] [address] 92527 Sodium [Moles/Vol] 141 mmol/L Normal 136 - 145 [facility] Comment on above: Performed By: #### 2 02085 #### [facility],[address] [place] [address] 38105 Urea nitrogen [Mass/Vol] 16 mg/dL Normal 7 - 18 [facility] Comment on above: Performed By: #### 2 20243 #### [facility],[address] [place] [address] ED MED ADMINISTRATION DETAIL on 05-14-2024 ED MED ADMINISTRATION DETAIL Straddle Carrier Operator Medication Administration Record [address] [address] [id number] 05/13/2024 Patient: FLORECITA SPEARS Sex: Male : 1990 Age: 33y MEASUREMENTS: Wt: 61.2 kg, Ht/Honorio: 68.0 in, BMI: 20.53 ALLERGIES: Sulfa (Sulfonamide Antibiotics) Medication Ordered Medication Administration Date/Time KetorOLAC 23:38 05/13 KetorOLAC (Toradol) IVP 15 mg given via Site# 1. Given (Toradol) IVP 15 mg Medication Wastage: 15 mg wasted. - 23:38 Mary Maria R.N. 23:38 05/13/2024 (NOW x1) Mary Maria R.N. 01:44 05/14 Medication Response: No adverse reaction. Pain is Scanned improving. Symptoms have improved. The patient feels better. - 01:59 Mary Maria R.N. 1 of 1 Normal [facility] ED NURSES CLINICAL NOTEon ED NURSES CLINICAL NOTE Nurse Narrative Nurse Clinical Narrative [facility] [address] [place] [address] [phone] 05/13/2024 Patient: FLORECITA SPEARS Sex: Male : 1990 Age: 33y Disposition: Discharge to Home Disposition Decision Time: 01:05/14/2024 Departure Time: 02:05/14/2024 TRIAGE Arrived by private vehicle. Historian: patient. Primary physician (Elenar). Primary care physician not notified of patient's arrival. Triage time: 22:39 05/13/2024. Acuity: LEVEL 3. Chief Complaint: PAIN WITH URINATION and (lower back pain, burning with urination, clots in urine). ( Diagnosed with kidney stone 2-3 days ago, approximately 2.5mm in size. Patient believes he has past some of the stone but is still having pain). No fever. SEPSIS SCREEN: NEGATIVE. SIRS criteria negative: heart rate greater than 90. Possible sources of infection: UTI. -- 22:46 05/13/24 PIPER Hu R.N. 22:39 05/13/24. Pain level now 8/10. (Lower back pain). -- 22:39 05/13/24 PIPER Hu R.N. 22:42 05/13/24. BP: 146/91 MAP: 109. HR: 110. RR: 16. O2 saturation: 96% on room air. Temperature: 99.1 F (oral). -- 22:44 05/13/24 PIPER Hu R.N. Measurements: 22:41 05/13/24 Wt: 61.2 kg, Ht/Honorio: 68.0 in, BMI: 20.53 -- 22:41 05/13/24 PIPER Hu R.N. Medications: traZODone 50 mg tablet: 50 mg once a day at bedtime. -- 22:41 05/13/24 PIPER Hu R.N. 1 of 4 Nurse Narrative tamsulosin 0.4 mg capsule -- 22:49 05/13/24 EST Vanesa Hu R.N. ondansetron 4 mg disintegrating tablet -- 22:49 05/13/24 EST Vanesa Hu R.N. hydrocodone 5 mg-acetaminophen 325 mg tablet -- 22:49 05/13/24 EST Vanesa Hu R.N. Allergies: Sulfa (Sulfonamide Antibiotics) -- 22:41 05/13/24 PIPER Hu R.N. Problems: no known problem -- 22:43 05/13/24 EST Vanesa Hu R.N. ADDITIONAL SURGERIES: no known surgical history -- 22:43 05/13/24 EST Vanesa Hu R.N. History 22:39 05/13/24. SOCIAL HX: Never smoker. No alcohol use or drug use. The patient has not traveled outside the [place] Infectious disease exposure: No infectious disease exposure. ABUSE ASSESSMENT: The patient answered yes to the question(s) Do you feel safe in your home? and no to the question(s) Are you afraid to go home?. SELF HARM ASSESSMENT: Self harm assessment was performed. The patient answered no to the question(s) Have you recently felt down, depressed, or hopeless? and Do you have thoughts of harming or killing yourself?. FALL RISK ASSESSMENT: Fall risk assessment completed. No risk factors identified. -- 22:46 05/13/24 PIPER Hu R.N. Interventions 22:39 05/13/24. Advanced care plan discussed with patient. Patient does not have advanced directive. -- 22:46 05/13/24 EST Vanesa Hu R.N. PHYSICAL ASSESSMENT 2 of 4 Nurse Narrative 22:42 05/13/24. BP: 146/91 MAP: 109. HR: 110. RR: 16. O2 saturation: 96% on room air. Temperature: 99.1 F (oral). -- 23:46 05/13/24 PIPER Maria R.N. 22:45 05/13/24. BP: 146/91 MAP: 102 mmHg. HR: 100 bpm. -- 23:46 05/13/24 PIPER Maria R.N. 22:48 05/13/24. HR: 106 bpm. O2 saturation: 97%. -- 23:46 05/13/24 PIPER Maria R.N. 23:38 05/13/24. Ambulatory to room. ( Pt c/o pain to lower back area. with hx of having a). GENERAL / NEURO / PSYCH: Alert. Oriented X 4. HEENT: Mucous membranes are pink. RESPIRATORY: Respirations not labored. Breath sounds within normal limits. GI / : Abdomen nontender. SKIN: Skin is warm and dry. -- 23:53 05/13/24 PIPER Maria R.N. 23:47 05/13/24. BP: 112/77 MAP: 88 mmHg. HR: 95 bpm. -- 23:46 05/13/24 PIPER Maria R.N. NURSING PROGRESS NOTES 22:42 05/13/24. BP: 146/91 MAP: 109. HR: 110. RR: 16. O2 saturation: 96% on room air. Temperature: 99.1 F (oral). -- 01:59 05/14/24 PIPER Maria R.N. 22:45 05/13/24. BP: 146/91 MAP: 102 mmHg. HR: 100 bpm. -- 01:59 05/14/24 PIPER Maria R.N. 22:48 05/13/24. HR: 106 bpm. O2 saturation: 97%. -- 01:59 05/14/24 PIPER Maria R.N. 23:38 05/13/24. KetorOLAC (Toradol) IVP 15 mg given via Site# 1. Medication Wastage: 15 mg wasted. -- 23:38 05/13/24 PIPER Maria R.N. 23:41 05/13/24. NIBP monitor placed on patient. Patient gowned. Head of bed elevated. Reassurance given. GI / : The patient reports flank pain that is constant and described as radiating to the back. Two patient identifiers checked. Call light placed in reach. Side rails up x 1. Bed placed in lowest position. Brakes of bed on. -- 23:56 05/13/24 PIPER Maria R.N. 23:47 05/13/24. BP: 112/77 MAP: 88 mmHg. HR: 95 bpm. -- 01:59 05/14/24 EST Mary Maria R.N. 00:18 05/14/24. BP: 109/82 MAP: 89 mmHg. HR: 87 bpm. -- 01:59 05/14/24 EST Mary Maria R.N. 00:47 05/14/24. BP: 108/59 MAP: 75 mmHg. HR: 94 bpm. -- 01:59 05/14/24 EST Mary Maria R.N. 01:17 05/14/24. (more content not included)... Normal [facility] ED ORDER SHEET (CPOE ONLY)on 05-14-2024 ED ORDER SHEET (CPOE ONLY) Order Sheet Order Sheet [address] [address] [id number] 05/13/2024 Patient: FLORECITA SPEARS Sex: Male : 1990 Age: 33y MEASUREMENTS: Wt: 61.2 kg, Ht/Honorio: 68.0 in, BMI: 20.53 ALLERGIES: Sulfa (Sulfonamide Antibiotics) MEDICATION/IV/DRIP/FLU ID ORDERS Order Description Priority Entered Acknowledged Completed KetorOLAC (Toradol) IVP15 mg 23:09 05/13/2024 23:22 23:38 (NOW x1) Stefano Pedraza M.D. 05/13/2024 05/13/2024 Mary Shah R.N. R.N. LAB ORDERS Order Description Priority Entered Acknowledged Collected Completed BMP Stat Stat 23:09 05/13/2024 23:22 05/13/2024 23:22 05/13/2024 Mary Restrepo Debra Schrock, M.D. R.N. RОлегN. Urinalysis Stat Stat 23:09 05/13/2024 23:22 05/13/2024 23:22 05/13/2024 Mary Restrepo Debra Schrock, M.D. R.N. R.N. DIAGNOSTIC STUDY ORDERS 1 of 2 Order Sheet Order Description Priority Entered Acknowledged Completed Abdomen 1V (Kidney Stone) Stat 23:09 05/13/2024 23:22 23:22 Stat Stefano Pedraza M.D. 05/13/2024 05/13/2024 Mary Shah R.N. RAria Reason for Study: Known kidney stone STAFF ORDERS Order Description Priority Entered Acknowledged Collected Completed [Electronically signed by Stefano Pedraza M.D. (05/14/2024 06:24 EST)] 2 of 2 Normal [facility] ED PHYSICIAN CLINICAL REPORT on 05-14-2024 ED PHYSICIAN CLINICAL REPORT Narrative Physician Clinical Narrative [address] [place] [address] [phone] 05/13/2024 Patient: FLORECITA SPEARS Sex: Male : 1990 Age: 33y Disposition: Discharge to Home Disposition Decision Time: :05/14/2024 Departure Time: 02:05/14/2024 Measurements Wt: 61.2 kg, Ht/Honorio: 68.0 in, BMI: 20.53 Initial Vital Sign Measured Time BP MAP HR RR O2Sat ETCO2 Temp Pain GCS RTS 22:39 05/13/2024 8 Time Seen: 23:46 05/13/2024. Historian- patient. HISTORY OF PRESENT ILLNESS Chief Complaint: BACK PAIN. It is described as being in the area of the left flank and radiating to the abdomen and groin. The quality is noted to be aching and similar to prior episodes. Onset- 4 days and it is still present. No bladder dysfunction, bowel dysfunction, sensory loss or motor loss. Patient denies an injury. Recent medical care: The patient was seen recently at this facility. ( recently seen here and diagnosed with ureteral stones. States that he was diagnosed with a left ureteral stone which he passed and brought in a sample cup. Unsure if he was given follow-up. States that he is still having pain which is why he is presenting tonight.). REVIEW OF SYSTEMS CONSTITUTIONAL: No fever or chills. : No difficulty with urination or urinary frequency. The patient has had hematuria. GI: The patient has had abdominal pain. No nausea, vomiting or diarrhea. 1 of 8 Narrative PAST HISTORY Has had urinary calculi. no known problem Surgeries: no known surgical history Medications: hydrocodone 5 mg-acetaminophen 325 mg tablet ondansetron 4 mg disintegrating tablet tamsulosin 0.4 mg capsule traZODone 50 mg tablet: 50 mg once a day at bedtime. Allergies: Sulfa (Sulfonamide Antibiotics) SOCIAL HISTORY Never smoker. No alcohol use or drug use. ADDITIONAL NOTES The nursing notes have been reviewed. PHYSICAL EXAM Vital Signs: Have been reviewed. Appearance: Alert. No acute distress. HEENT: Normal external inspection. Eyes: Pupils equal, round and reactive to light. Neck: Normal inspection. Neck nontender. CVS: Heart sounds normal. Respiratory: No respiratory distress. Painless inspiration. Abdomen: Soft and nontender. Bowel sounds normal. Back: Normal inspection. Painless ROM. Mild CVA tenderness on the left. 2 of 8 Narrative Skin: Skin warm and dry. Normal skin color. Normal skin turgor. Extremities: Extremities exhibit normal ROM. Extremities nontender. Neuro: Oriented X 3. Mood/affect normal. LABS, X-RAYS, AND EKG KUB: (Possible left-sided 2.5 mm stone that appears it is the region of the UVJ.). The X-rays were independently viewed by me and interpreted contemporaneously by me. Laboratory Tests: BMP with eGFR Final MAYUR: 05/13/2024 23:35:00 EST MsgRcvd: 05/14/2024 00:14 EST Lab Test Result Reference Status Received Comments BASIC 05/14/2024 BMP with eGFR Final METABOLIC 00:14 EST PANEL 05/14/2024 SODIUM 141 mmol/l 136 - 145 Final 00:14 EST 05/14/2024 POTASSIUM 3.9 mmol/L 3.5 - 5.1 Final 00:14 EST 05/14/2024 CHLORIDE 103 mmol/L 98 - 107 Final 00:14 EST 05/14/2024 CO2 25.6 mmol/L 21.0 - 32.0 Final 00:14 EST 05/14/2024 GLUCOSE 103 mg/dl 74 - 106 Final 00:14 EST 05/14/2024 BUN 16 mg/dl 7 - 18 Final 00:14 EST 05/14/2024 CREATININE 1.08 mg/dl 0.70 - 1.30 Final 00:14 EST 3 of 8 Narrative 05/14/2024 CALCIUM 8.9 mg/dl 8.5 - 10.1 Final 00:14 EST 05/14/2024 ANION GAP 16 mmol/L 10 - 20 Final 00:14 EST 05/14/2024 AGE 33 years Final 00:14 EST 05/14/2024 eGFR >60 ML/MINUTE 60 - 999 Final 00:14 EST ACCORDING TO THE NATIONAL KIDNEY DISEASE EDUCATION PROGRAM(NKDE), A NORMAL eGFR IS A VALUE GREATER THAN OR EQUAL TO 60 ML/MIN/1.73 SQ METERS. 05/14/2024 CHRONIC KIDNEY eGFR(AA) >60 ML/MINUTE 60 - 999 Final 00:14 EST DISEASE: <60mL/MIN/1.73 SQ METERS KIDNEY FAILURE: <15mL/MIN/1.73 SQ METERS THIS TEST SHOULD ONLY BE USED FOR PATIENTS 18 YEARS OF AGE AND OLDER. 4 of 8 Narrative URINALYSIS Final MAYUR: 05/13/2024 23:35:00 EST MsgRcvd: 05/14/2024 00:12 EST Lab Test Result Reference Status Received Comments 05/14/2024 00:12 URINALYSIS Final URINALYSIS EST 05/14/2024 00:12 Specimen Type R New Order EST NORMAL: 05/14/2024 00:12 Color yellow Final YELLOW EST NORMAL: 05/14/2024 00:12 Clarity sl.cloudy Final CLEAR EST NORMAL: 05/14/2024 00:12 ph 6.5 Final 5.0-8.0 EST NORMAL: 05/14/2024 00:12 Protein NEG Final NEGATIVE EST NORMAL: 05/14/2024 00:12 Glucose NORM Final NORMAL EST NORMAL: 05/14/2024 00:12 Ketone NEG Final NEGATIVE EST NORMAL: 05/14/2024 00:12 Bilirubin NEG Final NEGATIVE EST 10 NORMAL: 05/14/2024 00:12 Blood Final Abnor (more content not included)... Normal [facility] ED SUPER BILLon 05-14-2024 ED SUPER BILL [facility] [address] [place] [address] [id number] 05/13/2024 Patient: FLORECITA SPEARS Sex: Male : 1990 Age: 33y Item Facility Professional Category Description Code Code Quantity Fee Total Nurse/E/M EMERGENCY 579021 1 $0.00 $0.00 DEPARTMENT VISIT HIGH/URGENT SEVERITY (38595-49) Nurse/IV/IM/Infusions IVP initial 329138 1 $0.00 $0.00 (09526) Grand Total $0.00 Providers Stefano Pedraza M.D. Chief Complaint BACK PAIN. Principal Diagnosis Ureterolithiasis (single stone) in the right ureter with renal colic. 1 of 2 Superbill ICD-10 Codes N20.1: Calculus of ureter 2 of 2 Normal [facility] ED VISIT SUMMARYon ED VISIT SUMMARY Visit Overview Visit Overview [address] [facility] [place] [address] [id number] 05/13/2024 Patient: FLORECITA SPEARS Sex: Male : 1990 Age: 33y 05/14/2024 06:25 AM EST ED Arrival:21:36 05/13/2024 EST Status: Recent Travel:no Language:eng Adv Directive:No Isolation Status: Ethnicity:N Fall Risk:no risk Infectious Disease Exposure:no Measurements:5'8 / 172.7 Self-Harm Status:risk Sepsis Screen:negative cm 135.0 lb / 61.2 kg Chief Complaint:PAIN WITH URINATION, (Diagnosed with kidney stone 2-3 days ago, approximately 2.5mm in size. Patient believes he has past some of the stone but is still having pain), (lower back pain, burning with urination, clots in urine), and (Ungerer) ALLERGIES Sulfa (Sulfonamide Antibiotics) HOME MEDICATIONS 1 of 3 Visit Overview hydrocodone 5 mg-acetaminophen 325 mg tablet ondansetron 4 mg disintegrating tablet tamsulosin 0.4 mg capsule traZODone 50 mg tablet: 50 mg once a day at bedtime. PAST MEDICAL HISTORY / PROBLEMS Has had urinary calculi None PAST SURGICAL HISTORY No Surgeries SOCIAL HISTORY Smoking status: No Alcohol use: No Drug use: No ED COURSE MEDICATIONS GIVEN IN EMERGENCY DEPARTMENT 23:38 05/13/24 KetorOLAC (Toradol) IVP 15 mg IV SITE INFORMATION INTAKE OUTPUT REASSESMENT (most recent) 23:41 05/13/24. NIBP monitor placed on patient. Patient gowned. Head of bed elevated. Reassurance given. GI / : The patient reports flank pain that is constant and described as radiating to the back. Two patient identifiers checked. Call light placed in reach. Side rails up x 1. Bed placed in lowest position. Brakes of bed on. VITAL SIGNS First Vitals Last Vitals 2 of 3 Visit Overview First Vitals Last Vitals Temp 22:39 05/13/24 Temp 01:47 05/14/24 BP 22:39 05/13/24 BP 01:47 05/14/24 108/80 HR 22:39 05/13/24 HR 01:47 05/14/24 104 RR 22:39 05/13/24 RR 01:47 05/14/24 O2 Sat 22:39 05/13/24 O2 Sat 01:47 05/14/24 Pain 22:39 05/13/24 8 Pain 01:47 05/14/24 ETCO2 22:39 05/13/24 ETCO2 01:47 05/14/24 GCS 22:39 05/13/24 GCS 01:47 05/14/24 RTS 22:39 05/13/24 RTS 01:47 05/14/24 PROCEDURES NURSING INTERVENTIONS LABS / STUDIES LABS / STUDIES ORDERED Abdomen 1V (Kidney Stone) BMP Urinalysis CLINICAL IMPRESSION URETEROLITHIASIS (SINGLE STONE) IN THE RIGHT URETER WITH RENAL COLIC 3 of 3 Normal [facility] ED VITALS FLOW SHEETon 05-14 ED VITALS FLOW SHEET Vitals Vital Sign Flow Sheet [address] [address] [id number] 05/13/2024 Patient: FLORECITA SPEARS Sex: Male : 1990 Age: 33y Measurements Wt: 61.2 kg, Ht/Honorio: 68.0 in, BMI: 20.53 Measured Time BP MAP HR RR O2Sat ETCO2 Temp Pain GCS RTS 01:47 05/14/2024 108/80 88 104 01:17 05/14/2024 98/65 72 82 00:47 05/14/2024 108/59 75 94 00:18 05/14/2024 109/82 89 87 23:47 05/13/2024 112/77 88 95 22:48 05/13/2024 106 97% 22:45 05/13/2024 146/91 102 100 22:42 05/13/2024 146/91 109 110 16 96% RA 99.1 F 22:39 05/13/2024 8 1 of 1 Normal [facility] URINALYSISon 05-14-2024 Amorphous NONE Normal [facility] Comment on above: Performed By: #### 2 [id number] #### [facility],[address] [place], [place] [id number] Bacteria 1+ Normal [facility] Comment on above: Performed By: #### 2 26005 #### [facility],[address] [place], [place] [phone] Bilirubin Ql (U) Negative Normal NORMAL: NEGATIVE [facility] Comment on above: Performed By: #### 2 39713 #### [facility],[address] [place] [address] Casts NONE Normal [facility] Comment on above: Performed By: #### 2 19887 #### [facility],[address] [place] [address] Clarity (U) sl.cloudy Normal NORMAL: CLEAR [facility] Comment on above: Performed By: #### 2 28542 #### [facility],[address] [place] [address] 29885 Color (U) yellow Normal NORMAL: YELLOW [facility] Comment on above: Performed By: #### 2 82779 #### [facility],[address] [place] [address] Crystals LM Nom (Urine sed) NONE Normal [facility] Comment on above: Performed By: #### 2 05037 #### [facility],[address] [place] [address] 012[address] Epi Cells NONE Normal [facility] Comment on above: Performed By: #### 2 15260 #### [facility],[address] [place] [address] Glucose Ql (U) NORM Normal NORMAL: NORMAL [facility] Comment on above: Performed By: #### 2 81825 #### [facility],[address] [place] [address] 58418 Hemoglobin Ql (U) 10 Abnormal NORMAL: NEGATIVE [facility] Comment on above: Performed By: #### 2 08881 #### [facility],[address] [place] [address] 45892 Ketone Negative Normal NORMAL: NEGATIVE [facility] Comment on above: Performed By: #### 2 62144 #### [facility],[address] [place] [address] 378[address] Leukocytes Negative Normal NORMAL: NEGATIVE [facility] Comment on above: Performed By: #### 2 73578 #### [facility],[address] [place], [place] [id number] Mucous NONE Normal [facility] Comment on above: Performed By: #### 2 68149 #### [facility],[address] [place] [address] 13633 Nitrite Ql (U) Negative Normal NORMAL: NEGATIVE [facility] Comment on above: Performed By: #### 2 81233 #### [facility],[address] [place] [address] 09165 pH (U) 6.5 [pH] Normal NORMAL: 5.0-8.0 [facility] Comment on above: Performed By: #### 2 60988 #### [facility],[address] [place] [address] 61582 Protein Ql (U) Negative Normal NORMAL: NEGATIVE [facility] Comment on above: Performed By: #### 2 02970 #### [facility],[address] [place] [address] 49316 Rbc 0-5 Normal 0-3/hpf [facility] Comment on above: Performed By: #### 2 38731 #### [facility],[address] [place] [address] Sp [place] 1.015 Normal NORMAL: 1.010-1.030 [facility] Comment on above: Performed By: #### 2 14203 #### [facility],[address] [place] [address] Specimen Type R Normal [facility] Comment on above: Performed By: #### 2 28977 #### [facility],[address] [place] [address] Urinalysis dipstick W Reflex Microscopic panel (U) SEE BELOW Normal [facility] Comment on above: Result Comment: MICR OSCOPIC Performed By: #### 2 55154 #### [facility],[address] [place] [address] Urobilinog NORM Normal NORMAL: NORMAL [facility] Comment on above: Performed By: #### 2 88056 #### [facility],[address] [place] [address] Wbc NONE Normal 0-5/hpf [facility] Comment on above: Performed By: #### 2 65777 #### [facility],[address] [place] [address] Yeast NONE Normal [facility] Comment on above: Performed By: #### 2 46674 #### [facility],[address] [place] [address] ABDOMEN 1 VIEWon 05-13-2024 ABDOMEN 1 VIEW [place] [address] Patient: FLORECITA SPEARS Phone#: : 1990 Age: 33 Gender: M Pt. Type: ER Account: [id number] Location: [facility] Ordering: DR. STEFANO PEDRAZA Exam Date: 05/13/2024/23:25 Family Phys: GEORGE DIAZ Charge Code: 119264 Physician: Nicollet Order #: [id number] Dose#: PROCEDURE: ABDOMEN 1 VIEW COMPARISON: [facility], CT, KUB W/O CON, 05/09/2024, 6:46. [facility], XR, LUMBAR SPINE COMPLETE, 05/05/2022, 17:06. INDICATIONS: known kidney stone. FINDINGS: BOWEL GAS PATTERN: Normal. No abnormal dilation or deviation. CALCIFICATIONS: 2 millimeter calcification is present in the right pelvis. Calculus identified near the left ureterovesical junction by prior CT is not demonstrated. Overlying gas and stool however are present. OTHER: Negative. No abnormal gaseous collections. CONCLUSION: 1. Left pelvic calcification is not visualized. 2. 2 millimeter calculus in the right pelvis is present. Phlebolith is present at similar level on prior CT. Dictated by: Radha Foreman MD on 05/14/2024 at 19:50 Approved by: Radha Foreman MD on 05/14/2024 at 19:57 Normal [facility] C-REACTIVE PROTEINon 024 CRP [Mass/Vol] mg/L Normal 0.00 - 0.90 [facility] Comment on above: Performed By: #### 2 96421 #### [place] [address] CBC + DIFFon 05-09-2024 Baso # 0.03 x10EE3/UL Normal 0.00 - 0.10 [facility] Comment on above: Performed By: #### 2 78916 #### [facility],[address] [place] [address] Basophils/100 WBC (Bld) 0.3 % Normal 0.0 - 2.0 [facility] Comment on above: Performed By: #### 2 49559 #### [place] [address] CBC + DIFF Normal [facility] Comment on above: Result Comment: CBC- COMPLETE BLOOD COUNT Performed By: #### 2 97894 #### [place] [address] EO # 0.26 x10EE3/UL Normal 0.00 - 0.50 [facility] Comment on above: Performed By: #### 2 45359 #### [facility],[address] [place] [address] 43069 Eosinophils/100 WBC (Bld) 3.5 % Normal 0.0 - 7.0 [facility] Comment on above: Performed By: #### 2 34554 #### [facility],[address] [place] [address] Erythrocyte distribution width (RBC) [Ratio] 13.7 % Normal 12.0 - 15.6 [facility] Comment on above: Performed By: #### 2 33002 #### [facility],[address] [place] [address] Hematocrit (Bld) [Volume fraction] 43.5 % Normal 40.0 - 52.0 [facility] Comment on above: Performed By: #### 2 96549 #### [facility],[address] [place] [address] Hemoglobin (Bld) [Mass/Vol] 15.4 g/dL Normal 13.0 - 17.5 [facility] Comment on above: Performed By: #### 2 67963 #### [facility],[address] [place] [address] 55609 Lymph # 1.79 x10EE3/UL Normal 0.80 - 2.80 [facility] Comment on above: Performed By: #### 2 27056 #### [facility],[address] [place] [address] 02217 Lymphocytes/100 WBC (Bld) 23.8 % Normal 20.0 - 45.0 [facility] Comment on above: Performed By: #### 2 19685 #### [facility],[address] [place] [address] 04238 MANUAL DIFF N/A Normal [facility] Comment on above: Performed By: #### 2 61616 #### [facility],[address] [place] [address] MCH (RBC) [Entitic mass] 30 pg Normal 27 - 33 [facility] Comment on above: Performed By: #### 2 53259 #### [facility],[address] [place] [address] MCHC 35 X10 3 Normal 32 - 36 [facility] Comment on above: Performed By: #### 2 09606 #### [facility],[address] [place] [address] MCV (RBC) [Entitic vol] 86 fL Normal 81 - 98 [facility] Comment on above: Performed By: #### 2 62136 #### [facility],[address] [place] [address] [place] # 0.43 x10EE3/UL Normal 0.20 - 1.00 [facility] Comment on above: Performed By: #### 2 41158 #### [facility],[address] [place] [address] MONOS % 5.7 % Normal 0.0 - 10.0 [facility] Comment on above: Performed By: #### 2 94022 #### [facility],[address] [place], [place] [id number] Morphology Daniel (Bld) [Interp] N/A Normal [facility] Comment on above: Performed By: #### 2 71233 #### [facility],[address] [place] [address] Neut # 5.03 x10EE3/UL Normal 1.50 - 7.10 [facility] Comment on above: Performed By: #### 2 34522 #### [facility],[address] [place] [address] Neutrophils/100 WBC (Bld) 66.7 % Normal 46.0 - 76.0 [facility] Comment on above: Performed By: #### 2 96007 #### [facility],[address] [place] [address] 83437 PLATELET 234 x10EE3/UL Normal 150 - [address] [facility] Comment on above: Performed By: #### 2 08691 #### [facility],[address] [place] [address] 62434 Platelet mean volume (Bld) [Entitic vol] 6.6 fL Normal 6.4 - 10.5 [facility] Comment on above: Result Comment: AUTO MATED DIFFERENTIAL Performed By: #### 2 63713 #### [facility],[address] [place] [address] 33539 RBC 5.06 x 10EE6/UL Normal 4.50 - 6.00 [facility] Comment on above: Performed By: #### 2 88074 #### [facility],[address] [place] [address] 32187 WBC 7.5 x 10EE3/UL Normal 4.5 - 10.[address] [facility] Comment on above: Performed By: #### 2 98682 #### [facility],[address] [place] [address] 53318 Baso # 0.02 x10EE3/UL Normal 0.00 - 0.10 [facility] Comment on above: Performed By: #### 2 93916 #### [facility],[address] [place] [address] 32125 Basophils/100 WBC (Bld) 0.2 % Normal 0.0 - 2.0 [facility] Comment on above: Performed By: #### 2 18402 #### [facility],[address] [place] [address] 86209 CBC + DIFF Normal [facility] Comment on above: Result Comment: CBC- COMPLETE BLOOD COUNT Performed By: #### 2 38530 #### [facility],[address] [place] [address] 35399 EO # 0.26 x10EE3/UL Normal 0.00 - 0.50 [facility] Comment on above: Performed By: #### 2 59166 #### [facility],[address] [place] [address] Eosinophils/100 WBC (Bld) 3.1 % Normal 0.0 - 7.0 [facility] Comment on above: Performed By: #### 2 91204 #### [facility],[address] [place] [address] Erythrocyte distribution width (RBC) [Ratio] 12.9 % Normal 12.0 - 15.6 [facility] Comment on above: Performed By: #### 2 63783 #### [facility],[address] [place] [address] Hematocrit (Bld) [Volume fraction] 42.8 % Normal 40.0 - 52.0 [facility] Comment on above: Performed By: #### 2 13215 #### [facility],[address] [place] [address] Hemoglobin (Bld) [Mass/Vol] 15.1 g/dL Normal 13.0 - 17.5 [facility] Comment on above: Performed By: #### 2 76827 #### [facility],[address] [place] [address] Lymph # 2.67 x10EE3/UL Normal 0.80 - 2.80 [facility] Comment on above: Performed By: #### 2 29208 #### [facility],[address] [place] [address] Lymphocytes/100 WBC (Bld) 31.7 % Normal 20.0 - 45.0 [facility] Comment on above: Performed By: #### 2 75083 #### [facility],[address] [place] [address] MANUAL DIFF N/A Normal [facility] Comment on above: Performed By: #### 2 08289 #### [facility],[address] [place] [address] MCH (RBC) [Entitic mass] 31 pg Normal 27 - 33 [facility] Comment on above: Performed By: #### 2 49101 #### [facility],[address] [place] [address] MCHC 35 X10 3 Normal 32 - 36 [facility] Comment on above: Performed By: #### 2 27651 #### [facility],[address] [place] [address] MCV (RBC) [Entitic vol] 87 fL Normal 81 - 98 [facility] Comment on above: Performed By: #### 2 77264 #### [place] [address] [place] # 0.71 x10EE3/UL Normal 0.20 - 1.00 [facility] Comment on above: Performed By: #### 2 38389 #### [facility],[address] [place] [address] MONOS % 8.5 % Normal 0.0 - 10.0 [facility] Comment on above: Performed By: #### 2 19122 #### [facility],[address] [place] [address] Morphology Daniel (Bld) [Interp] REVIEWED Normal [facility] Comment on above: Performed By: #### 2 18570 #### [place] [address] Neut # 4.76 x10EE3/UL Normal 1.50 - 7.10 [facility] Comment on above: Performed By: #### 2 80587 #### [place] [address] Neutrophils/100 WBC (Bld) 56.6 % Normal 46.0 - 76.0 [facility] Comment on above: Performed By: #### 2 88729 #### [facility],[address],[place] [address] PLATELET 235 x10EE3/UL Normal 150 - [address] [facility] Comment on above: Performed By: #### 2 93502 #### [facility],[address] [place] [address] 22837 Platelet mean volume (Bld) [Entitic vol] 6.0 fL Low 6.4 - 10.5 [facility] Comment on above: Result Comment: AUTO MATED DIFFERENTIAL Performed By: #### 2 37214 #### [facility],[address] [place] [address] 13984 RBC 4.93 x 10EE6/UL Normal 4.50 - 6.00 [facility] Comment on above: Performed By: #### 2 31691 #### [facility],[address] [place] [address] 82594 WBC 8.4 x 10EE3/UL Normal 4.5 - 10.[address] [facility] Comment on above: Performed By: #### 2 86355 #### [facility],[address] [place] [address] 11706 CHEST 1 VIEWon 05-09-2024 CHEST 1 VIEW [place] [address] Patient: FLORECITA SPEARS Phone#: : 1990 Age: 33 Gender: M Pt. Type: ER Account: [id number] Location: 052 Ordering: SUSHMA SOTELO Exam Date: 05/09/2024/1:08 Family Phys: GEORGE TEAGUERADHA Charge Code: [id number] Physician: Nicollet Order #: [id number] Dose#: PROCEDURE: X-RAY CHEST 1 VIEW COMPARISON: None. INDICATIONS: Chest pain. FINDINGS: LUNGS: Normal. No significant pulmonary parenchymal abnormalities. VASCULATURE: Normal. Unremarkable pulmonary vasculature. CARDIAC: Normal. No cardiac silhouette abnormality or cardiomegaly. MEDIASTINUM: Normal. No visible mass or adenopathy. PLEURA: Normal. No effusion or pleural thickening. BONES: Normal. No fracture or visible bony lesion. OTHER: Negative. CONCLUSION: No acute disease. Dictated by: Thelma Werner MD on 05/09/2024 at 9:31 Approved by: Thelma Werner MD on 05/09/2024 at 9:34 Normal [facility] CMP with eGFRon 05-09-2024 AGE 33 years Normal [facility] Comment on above: Performed By: #### 2 29937 ####[facility],[address] [place] [address] 26538 Albumin [Mass/Vol] 3.8 g/dL Normal 3.4 - 5.0 [facility] Comment on above: Performed By: #### 2 18277 ####[facility],[address] [place] [address] 62793 Albumin/Globulin [Mass ratio] 1.1 {ratio} Normal 0.9 - 1.6 [facility] Comment on above: Performed By: #### 2 39870 ####[facility],[address] [place] [address] 57758 ALK PHOS 67 U/L Normal 46 - 116 [facility] Comment on above: Performed By: #### 2 52587 ####[facility],[address] [place] [address] 04809 ALT [Catalytic activity/Vol] 26 U/L Normal 16 - 63 [facility] Comment on above: Performed By: #### 2 62679 ####[facility],[address] [place] [address] 88076 Anion gap [Moles/Vol] 7 mmol/L Low 10 - 20 [facility] Comment on above: Performed By: #### 2 56487 ####[facility],[address] [place] [address] 01894 AST [Catalytic activity/Vol] 17 U/L Normal 15 - 37 [facility] Comment on above: Performed By: #### 2 11482 ####[facility],[address] [place] [address] 03648 B/C RATIO 15 ratio Normal 0 - 30 [facility] Comment on above: Performed By: #### 2 22635 ####[facility],[address] [place] [address] 75023 Bilirubin [Mass/Vol] 0.5 mg/dL Normal 0.2 - 1.0 [facility] Comment on above: Performed By: #### 2 72804 ####[facility],[address] [place] [address] 58238 Calcium [Mass/Vol] 8.5 mg/dL Normal 8.5 - 10.1 [facility] Comment on above: Performed By: #### 2 15074 ####[facility],[address] [place] [address] 39049 Chloride [Moles/Vol] 106 mmol/L Normal 98 - 107 [facility] Comment on above: Performed By: #### 2 56232 ####[facility],[address] [place] [address] 65570 CMP with eGFR Normal [facility] Comment on above: Result Comment: COMP REHENSIVE METABOLIC PANEL Performed By: #### 2 46092 ####[facility],[address] [place] [address] 09453 CO2 [Moles/Vol] 28.8 mmol/L Normal 21.0 - 32.0 [facility] Comment on above: Performed By: #### 2 11112 ####[facility],[address] [place] [address] 10951 Creatinine [Mass/Vol] 1.26 mg/dL Normal 0.70 - 1.30 [facility] Comment on above: Performed By: #### 2 62108 ####[facility],[address] [place] [address] 20148 GFR/1.73 sq M.predicted among non-blacks MDRD (S/P/Bld) [Vol rate/Area] mL/min/{1.73_m2} Normal 60 - 999 [facility] Comment on above: Performed By: #### 2 44273 ####[facility],[address] [place] [address] 25893 Result Comment: ACCO RDING TO THE NATIONAL KIDNEY DISEASE EDUCATION PROGRAM(NKDE), A NORMAL eGFR IS A VALUE GREATER THAN OR EQUAL TO 60 ML/MIN/1.73 SQ METERS. CHRONIC KIDNEY DISEASE: <60mL/MIN/1.73 SQ METERS KIDNEY FAILURE: <15mL/MIN/1.73 SQ METERS THIS TEST SHOULD ONLY BE USED FOR PATIENTS 18 YEARS OF AGE AND OLDER. Globulin (S) [Mass/Vol] 3.6 g/dL Normal 1.5 - 3.8 [facility] Comment on above: Performed By: #### 2 70796 ####[facility],[address] [place] [address] 21939 Glucose [Mass/Vol] 136 mg/dL High 74 - 106 [facility] Comment on above: Performed By: #### 2 24704 ####[facility],[address] [place] [address] 50186 Potassium [Moles/Vol] 3.7 mmol/L Normal 3.5 - 5.1 [facility] Comment on above: Performed By: #### 2 78934 ####[facility],[address] [place] [address] 96048 Protein [Mass/Vol] 7.4 g/dL Normal 6.4 - 8.2 [facility] Comment on above: Performed By: #### 2 62144 ####[facility],[address] [place] [address] 02022 Sodium [Moles/Vol] 138 mmol/L Normal 136 - 145 [facility] Comment on above: Performed By: #### 2 51841 ####[facility],[address] [place] [address] 87597 Urea nitrogen [Mass/Vol] 19 mg/dL High 7 - 18 [facility] Comment on above: Performed By: #### 2 49624 ####[facility],[address] [place] [address] 21985 AGE 33 years Normal [facility] Comment on above: Performed By: #### 2 33231 #### [facility],[address] [place] [address] 47590 Albumin [Mass/Vol] 3.8 g/dL Normal 3.4 - 5.0 [facility] Comment on above: Performed By: #### 2 79275 #### [facility],[address] [place] [address] 88673 Albumin/Globulin [Mass ratio] 1.1 {ratio} Normal 0.9 - 1.6 [facility] Comment on above: Performed By: #### 2 16902 #### [facility],[address] [place] [address] 53426 ALK PHOS 68 U/L Normal 46 - 116 [facility] Comment on above: Performed By: #### 2 41942 #### [facility],[address] [place] [address] 52864 ALT [Catalytic activity/Vol] 26 U/L Normal 16 - 63 [facility] Comment on above: Performed By: #### 2 24309 #### [facility],[address] [place] [address] 75635 Anion gap [Moles/Vol] 12 mmol/L Normal 10 - 20 [facility] Comment on above: Performed By: #### 2 59585 #### [facility],[address] [place] [address] 86494 AST [Catalytic activity/Vol] 16 U/L Normal 15 - 37 [facility] Comment on above: Performed By: #### 2 96772 #### [facility],[address] [place] [address] 45227 B/C RATIO 14 ratio Normal 0 - 30 [facility] Comment on above: Performed By: #### 2 44784 #### [facility],[address] [place], [place] [id number] Bilirubin [Mass/Vol] 0.5 mg/dL Normal 0.2 - 1.0 [facility] Comment on above: Performed By: #### 2 41406 #### [facility],[address] [place] [address] 22765 Calcium [Mass/Vol] 8.5 mg/dL Normal 8.5 - 10.1 [facility] Comment on above: Performed By: #### 2 17173 #### [facility],[address] [place], [place] [id number] Chloride [Moles/Vol] 104 mmol/L Normal 98 - 107 [facility] Comment on above: Performed By: #### 2 31823 #### [facility],[address] [place], [place] [id number] CMP with eGFR Normal [facility] Comment on above: Result Comment: COMP REHENSIVE METABOLIC PANEL Performed By: #### 2 69832 #### [facility],[address] [place] [address] 99725 CO2 [Moles/Vol] 28.4 mmol/L Normal 21.0 - 32.0 [facility] Comment on above: Performed By: #### 2 08559 #### [facility],[address] [place] [address] 93188 Creatinine [Mass/Vol] 1.16 mg/dL Normal 0.70 - 1.30 [facility] Comment on above: Performed By: #### 2 76094 #### [facility],[address] [place] [address] 55928 GFR/1.73 sq M.predicted among non-blacks MDRD (S/P/Bld) [Vol rate/Area] mL/min/{1.73_m2} Normal 60 - 999 [facility] Comment on above: Performed By: #### 2 36944 #### [facility],[address] [place] [address] Result Comment: ACCO RDING TO THE NATIONAL KIDNEY DISEASE EDUCATION PROGRAM(NKDE), A NORMAL eGFR IS A VALUE GREATER THAN OR EQUAL TO 60 ML/MIN/1.73 SQ METERS. CHRONIC KIDNEY DISEASE: <60mL/MIN/1.73 SQ METERS KIDNEY FAILURE: <15mL/MIN/1.73 SQ METERS THIS TEST SHOULD ONLY BE USED FOR PATIENTS 18 YEARS OF AGE AND OLDER. Globulin (S) [Mass/Vol] 3.6 g/dL Normal 1.5 - 3.8 [facility] Comment on above: Performed By: #### 2 19546 #### [facility],[address] [place] [address] 92385 Glucose [Mass/Vol] 89 mg/dL Normal 74 - 106 [facility] Comment on above: Performed By: #### 2 69227 #### [facility],[address] [place] [address] 27105 Potassium [Moles/Vol] 3.7 mmol/L Normal 3.5 - 5.1 [facility] Comment on above: Performed By: #### 2 48219 #### [facility],[address] [place] [address] 52403 Protein [Mass/Vol] 7.4 g/dL Normal 6.4 - 8.2 [facility] Comment on above: Performed By: #### 2 72063 #### [facility],[address] [place] [address] 27728 Sodium [Moles/Vol] 141 mmol/L Normal 136 - 145 [facility] Comment on above: Performed By: #### 2 12143 #### [facility],[address] [place] [address] 15220 Urea nitrogen [Mass/Vol] 16 mg/dL Normal 7 - 18 [facility] Comment on above: Performed By: #### 2 90022 #### [facility],[address] [place] [address] KUB (KIDNEY STONE PROTOCO L)on 05-09-2024 CT KUB (KIDNEY STONE PROTOCOL) [place] [id number] Patient: FLORECITA SPEARS Phone#: : 1990 Age: 33 Gender: M Pt. Type: ER Account: [id number] Location: 2 Ordering: SUSHMA SOTELO Exam Date: 05/09/2024/6:46 Family Phys: GEORGE DIAZ Charge Code: 309108 Physician: Nicollet Order #: [id number] Dose#: 6.6 PROCEDURE: CT ABDOMEN AND PELVIS WITHOUT CONTRAST COMPARISON: [facility], CT, ABDOMEN/PELVIS W CON, 02/25/2022, 20:37. INDICATIONS: Flank pain. TECHNIQUE: After obtaining the patient's consent, CT images of the abdomen and pelvis were created without non-ionic intravenous contrast material. All CT scans at this facility use dose modulation, iterative reconstruction, and/or weight based dosing when appropriate to reduce radiation dose to as low as reasonably achievable. IV CONTRAST: No IV contrast used,0ml TOTAL DOSE: 6.6 CTDIvol(mGy) FINDINGS: Evaluation of the solid organs and soft tissues is limited in the absence of intravenous contrast. KIDNEYS: Obstructing stone at the left ureteral vesicular junction measuring 0.3 cm. Left hydronephrosis and dilatation of the proximal left ureter. The fluid in the renal collecting system is dense, likely hemorrhage. ADRENALS: Normal. No mass or enlargement. URINARY BLADDER: Urinary bladder is decompressed. LIVER: Unremarkable in contour BILIARY: Gallbladder is present. PANCREAS: Normal. No lesion, fluid collection, ductal dilatation, or atrophy. SPLEEN: Normal. No enlargement or focal lesion. AORTA/VASCULAR: No aortic aneurysm. RETROPERITONEUM: Limited evaluation for adenopathy in the absence of contrast BOWEL/MESENTERY: No bowel obstruction or dilatation. No significant stool burden. Appendix is unremarkable in size and contains air. ABDOMINAL WALL: Normal. No mass or hernia. PELVIC NODES: Normal. No adenopathy. PELVIC ORGANS: Normal. No visible mass. Pelvic organs appropriate for patient age. BONES: L3 limbus vertebral bodies noted, normal variant. LUNG BASES: Nonspecific 0.2 cm nodule in the left lower lobe, series 2, image 6 OTHER: Negative. Continued Report - Page 2 of 2 Patient: FLORECITA SPEARS Phone#: : 1990 Age: 33 Gender: M Pt. Type: ER Account: [id number] Location: 052 Ordering: SUSHMA SOTELO Exam Date: 05/09/2024/6:46 Family Phys: GEORGE DIAZ Charge Code: [id number] Physician: Nicollet Order #: [id number] Dose#: 6.6 CONCLUSION: 1. Obstructing stone at the left ureteral vesicular junction. Left mild hydronephrosis. 2. Hyperdense fluid in the left renal collecting system and ureter. Likely hemorrhage. Recommend correlation with urine analysis. Dictated by: Thelma Werner MD on 05/09/2024 at 10:52 Approved by: Thelma Werner MD on 05/09/2024 at 11:02 Normal [facility] D-DIMER, QUANTITATIVEon 12- D-DIMER QUANT <200 Normal 0 - [address] [facility] Comment on above: Performed By: #### 2 11543 #### [facility],[address] [place], [place] [id number] D-DIMER, QUANTITATIVE Normal [facility] Comment on above: Result Comment: KOTA T D-DIMER Performed By: #### 2 63938 #### [facility],[address] [place] [address] 20016 DRUG SCREEN URINE MEDICon AMPHETAMINES Negative Normal [facility] Comment on above: Performed By: #### 2 30597 #### [facility],[address] [place] [address] 10280 B-DIAZEPINES Negative Normal [facility] Comment on above: Performed By: #### 2 41573 #### [facility] [facility],[address] [place] [id number] BARBITURATES Negative Normal [facility] Comment on above: Performed By: #### [id number] #### [facility],[address] [place] [address] [id number] COCAINE Negative Normal [facility] Comment on above: Performed By: #### 2 [id number] #### [facility],[address] [place] [address] DRUG SCREEN URINE MEDIC Normal [facility] Comment on above: Result Comment: DRUG SCREEN - URINE Performed By: #### 2 [id number] #### [facility],[address] [place] [address] METHADONE Negative Normal [facility] Comment on above: Performed By: #### 2 [id number] #### [facility],[address] [place] [address] OPIATES Negative Normal [facility] Comment on above: Performed By: #### 2 [id number] #### [facility],[address] [place] [address] PCP Negative Normal [facility] Comment on above: Performed By: #### 2 [id number] #### [facility],[address] [place], [place] [id number] THC Positive Normal [facility] Comment on above: Result Comment: TATA ENTS RECEIVING PROTON PUMP INHIBITORS MAY DEMONSTRATE FALSE POSITIVE THC/CANNABINOID RESULTS. AN ALTERNATIVE CONFIRMATORY METHOD SHOULD BE CONSIDERED TO VERIFY POSITIVE RESULTS. Performed By: #### 2 [id number] #### [facility],[address] [place] [address] ED MED ADMINISTRATION DETAIL on 05-09-2024 ED MED ADMINISTRATION DETAIL Straddle Carrier Operator Medication Administration Record [address] [place] [address] [id number] 05/08/2024 Patient: FLORECITA SPEARS Sex: Male : 1990 Age: 33y MEASUREMENTS: Wt: 68.0 kg, Ht/Honorio: 68.0 in, BMI: 22.81 ALLERGIES: No known drug allergies Medication Ordered Medication Administration Date/Time Aspirin PO Chew :44 05/09 Aspirin PO Chew 324 mg given. Allergies verified and Given 324 mg (NOW x1) confirmed 5 rights. Information reviewed with patient including :44 05/09/2024 reason for taking this medication. Verbalizes understanding. - Gilbert Cha R.N. 01:45 Gilbert Cha R.N. Scanned KetorOLAC 01:43 12 KetorOLAC (Toradol) IVP 30 mg given via Site# 1. Given (Toradol) IVP 30 mg Allergies verified and confirmed 5 rights. IV patency established. IV 01:43 05/09/2024 (NOW x1) site checked: no pain, redness, or swelling. IV flushed thoroughly Gilbert Cha R.N. pre-medication administration. Information reviewed with patient Scanned including reason for taking this medication. Verbalizes understanding. - 01:44 Gilbert Cha R.N. 1 of 1 Normal [facility] ED MED ADMINISTRATION DETAIL Straddle Carrier Operator Medication Administration Record [address] [place] [address] [id number] 05/09/2024 Patient: FLORECITA SPEARS Sex: Male : 1990 Age: 33y MEASUREMENTS: Wt: 61.2 kg, Ht/Honorio: 68.0 in, BMI: 20.53 ALLERGIES: Sulfa (Sulfonamide Antibiotics) Medication Ordered Medication Administration Date/Time IV NS 0.9 % 1000 06:58 05/09 IV NS 0.9 % 1000 mL started in bag#1 1000 mL at Started mL at 999 mL/hr 999 mL/hr via Site# 1. Allergies verified and confirmed 5 rights. IV 06:58 05/09/2024 (NOW x1) patency established. IV site checked: no pain, redness, or swelling. Gilbert Cha R.N. IV flushed thoroughly pre-medication administration. Information Stopped reviewed with patient including reason for taking this medication. 08:00 05/09/2024 Verbalizes understanding. - 06:58 Tara Yanes R.N. Scanned 08:00 05/09 Medication Discontinued: bag #1 infused. Total amount infused: 1000 mL. IV patency established. IV site checked: no pain, redness, or swelling. IV flushed thoroughly post-medication administration. - 09:04 Leslie Man R.N. KetorOLAC 06:59 12 KetorOLAC (Toradol) IVP 15 mg given via Site# 1. Given (Toradol) IVP 15 mg Allergies verified and confirmed 5 rights. IV patency established. IV 06:59 05/09/2024 (NOW x1) site checked: no pain, redness, or swelling. IV flushed thoroughly Gilbertreuben Navap, R.N. pre-medication administration. Information reviewed with patient Scanned including reason for taking this medication. Verbalizes understanding. Medication Wastage: 15 mg wasted. - 06:59 Gilbert Cha, R.N. 1 of 2 Straddle Carrier Operator Medication Ordered Medication Administration Date/Time Zofran IVP 4 mg 06:59 12 Zofran IVP 4 mg given via Site# 1. Allergies verified Given (NOW x1) and confirmed 5 rights. IV patency established. IV site checked: no 06:59 05/09/2024 pain, redness, or swelling. IV flushed thoroughly pre-medication Gilbert Semaj, R.N. administration. Information reviewed with patient including reason Scanned for taking this medication. Verbalizes understanding. - 06:59 Gilbert Cha, R.N. 2 of 2 Normal [facility] ED NURSES CLINICAL NOTEon ED NURSES CLINICAL NOTE Nurse Narrative Nurse Clinical [address] [address] [id number] 05/08/2024 Patient: FLORECITA SPEARS Sex: Male : 1990 Age: 33y Disposition: Discharge to Home Disposition Decision Time: 03:52 05/09/2024 Departure Time: 04:00 05/09/2024 TRIAGE Arrived by private vehicle. ( CHEST PAIN X1 WEEK THAT COMES AND GOES INTERMITTENTLY). Triage time: 00:16 05/09/2024. Acuity: LEVEL 3. Chief Complaint: CHEST PAIN. ( TINGLING IN CHEST). No difficulty breathing, sweating episodes, nausea, vomiting or fever. No cough. SEPSIS SCREEN: NEGATIVE. SIRS criteria negative. No possible sources of infection. -- 00:19 05/09/24 PIPER Riggins R.N. 00:17 05/09/24. BP: 133/90 MAP: 104. HR: 75. RR: 18. O2 saturation: 98% Temperature: 99.2 F. Pain level now 2/10. -- 00:05/09/24 PIPER Riggins R.N. Measurements: 00:05/09/24 Wt: 68.0 kg -- 00:19 05/09/24 PIPER Riggins R.N. 00:05/09/24 Ht/Honorio: 68.0 in -- 00:05/09/24 PIPER Cha R.N. Medications: traZODone 50 mg tablet: 50 mg once a day at bedtime. -- 00:17 05/09/24 PIPER Riggins R.N. 1 of 4 Nurse Narrative Allergies: no known drug allergies -- 00:30 05/09/24 PIPER Riggins R.N. Problems: no known problem -- 00:05/09/24 PIPER Riggins R.N. ADDITIONAL SURGERIES: no known surgical history -- 00:05/09/24 PIPER Riggins R.N. History 00:16 05/09/24. PAST MEDICAL HX: No history of diabetes mellitus, hypertension, heart disease or lung disease. Immunizations: up-to-date. SURGERY HX: No history of previous surgery. SOCIAL HX: Never smoker. No alcohol use or drug use. The patient has not traveled outside the [place] Infectious disease exposure: No infectious disease exposure. ABUSE ASSESSMENT: Deferred. The patient answered yes to the question(s) Do you feel safe in your home? and no to the question(s) Are you afraid to go home?, Are you afraid of your partner or someone close to you?, Has your partner or someone close to you emotionally, physically, or sexually assaulted you?, Has your partner or someone close to you threatened to harm/ kill you?, Did your partner or someone close to you cause the presenting injury(s)?, Has your partner or someone close to you ever used a weapon towards you?, Have children witnessed violence in the home? and Has your partner or someone close to you physically abused children?. No report of abuse. SELF HARM ASSESSMENT: Self harm assessment was performed. The patient answered no to the question(s) Have you recently felt down, depressed, or hopeless?, Do you have thoughts of harming or killing yourself?, Do you have a plan for harming or killing yourself?, Have you recently had thoughts about harming or killing others?, Do you have any dangerous items in your possession?, Have you noticed less interest or pleasure in doing things?, Are you here because you tried to hurt yourself? and Have you ever tried to hurt yourself before today?. 2 of 4 Nurse Narrative NUTRITIONAL RISK ASSESSMENT: The nutritional risk assessment revealed no deficiencies. FUNCTIONAL ASSESSMENT: Functional assessment: no impairments noted. LEARNING NEEDS ASSESSMENT: The learning needs assessment revealed no barriers. FALL RISK ASSESSMENT: Fall risk assessment completed. No risk factors identified. SKIN INTEGRITY ASSESSMENT: Skin integrity risk assessment completed. No skin integrity risk identified. -- 00:19 05/09/24 PIPER Riggins R.N. Assessment 00:16 05/09/24. The patient states feels the same. -- 00:19 05/09/24 PIPER Riggins R.N. Interventions 00:16 05/09/24. Identification band and allergy band on patient. Advanced care plan (FULL). Protocol not initiated. Precautions not initiated. -- 00:19 05/09/24 PIPER Riggins R.N. PHYSICAL ASSESSMENT 01:25 05/09/24. Ambulatory to room. ( 2/10 mid sternal chest pressure for 1 week). GENERAL / NEURO / PSYCH: Alert. Oriented X 4. Appears in no acute distress. ( on phone). RESPIRATORY: Respirations not labored. CVS: Normal sinus rhythm noted. -- 01:50 05/09/24 PIPER Cha R.N. NURSING PROGRESS NOTES 01:02 05/09/24. 12-LEAD EKG: EKG time: (23:51 05/08/2024). 12-Lead EKG was ordered, performed by a nurse and shown to the ED physician. -- 01:02 05/09/24 PIPER Cha R.N. 01:43 05/09/24. KetorOLAC (Toradol) IVP 30 mg given via Site# 1. Allergies verified and confirmed 5 rights. IV patency established. IV site checked: no pain, redness, or swelling. IV flushed thoroughly pre-medication administration. Information reviewed with patient including reason for taking this medication. Verbalizes understanding. -- 01:44 05/09/24 PIPER Cha R.N. 3 of 4 Nurse Narrative 01:44 (more content not included)... Normal [facility] ED NURSES CLINICAL NOTE Nurse Narrative Nurse Clinical Narrative [facility] [address] [place] [address] [id number] 05/09/2024 Patient: FLORECITA SPEARS Sex: Male : 1990 Age: 33y Disposition: Discharge to Home Disposition Decision Time: 07:19 05/09/2024 Departure Time: 08:03 05/09/2024 TRIAGE Arrived by private vehicle. Historian: patient. Accompanied by family. Primary physician (Oralia). Triage time: 06:23 05/09/2024. Acuity: LEVEL 3. This started just prior to arrival. ( UTI sx, flank pain, burning penis.). SEPSIS SCREEN: NEGATIVE. SIRS criteria negative. Possible sources of infection: UTI. -- 06:29 05/09/24 PIPER Cha R.N. 06:28 05/09/24. BP: 123/57 while lying. MAP: 79. HR: 79. Regular. RR: 18. O2 saturation: 100% Temperature: 98.4 F (oral). Pain level now 10/10. -- 06:28 05/09/24 PIPER Cha R.N. Chief Complaint: PAIN WITH URINATION and (flank pain, burning penis). 06:30 05/09/24. -- 06:30 05/09/24 PIPER Cha R.N. Measurements: 06:29 05/09/24 Wt: 61.2 kg, Ht/Honorio: 68.0 in, BMI: 20.53 -- 06:05/09/24 PIPER Cha R.N. Medications: traZODone 50 mg tablet: 50 mg once a day at bedtime. -- 06:27 05/09/24 PIPER Cha R.N. Allergies: 1 of 4 Nurse Narrative Sulfa (Sulfonamide Antibiotics) -- 06:27 05/09/24 PIPER Cha R.N. Problems: no known problem -- 06:27 05/09/24 PIPER Cha R.N. ADDITIONAL SURGERIES: no known surgical history -- 06:28 05/09/24 PIPER Cha R.N. History 06:23 05/09/24. SOCIAL HX: Never smoker. No alcohol use or drug use. The patient has not traveled outside the [place] Infectious disease exposure: No infectious disease exposure. ABUSE ASSESSMENT: The patient answered yes to the question(s) Do you feel safe in your home? and no to the question(s) Are you afraid to go home?. SELF HARM ASSESSMENT: Self harm assessment was performed. The patient answered no to the question(s) Have you recently felt down, depressed, or hopeless? and Do you have thoughts of harming or killing yourself?. NUTRITIONAL RISK ASSESSMENT: The nutritional risk assessment revealed no deficiencies. FALL RISK ASSESSMENT: Fall risk assessment completed. No risk factors identified. -- 06:29 05/09/24 PIPER Cha R.N. PHYSICAL ASSESSMENT 06:54 05/09/24. GENERAL / NEURO / PSYCH: Appears in pain. ( Left flank pain). HEENT: Mucous membranes are pink. RESPIRATORY: Respirations not labored. Breath sounds within normal limits. CVS: Normal heart rate and rhythm. Capillary refill less than 2 seconds. GI / : Abdomen soft and nontender. Bowel sounds within normal limits. ( penis is burning). SKIN: Skin is warm and dry. -- 06:54 05/09/24 PIPER Herman R.N. 2 of 4 Nurse Narrative NURSING PROGRESS NOTES 06:42 05/09/24. Patient ID band checked. Blood samples drawn from the left antecubital space peripheral IV site with Vacutainer 20g by ak per protocol ; labeled in presence of the patient and sent to lab: rainbow set. Initial blood discarded and additional blood sent to lab. Line flushed with 5 mL normal saline post blood draw. -- 06:47 05/09/24 PIPER Herman R.N. 06:42 05/09/24. Site #1 started via IV in the left antecubital space with a 20g angiocath with aseptic technique and good blood return; 1 attempt. Blood drawn: rainbow set tube(s). Saline lock flushed with 5 mL saline. -- 06:47 05/09/24 PIPER Herman R.N. 06:45 05/09/24. Rounding: Pain: assessed pain level. Personal care / toileting: assisted with toileting. Set expectations: advised patient of rounding protocol timing and asked if they needed anything else at this time. Two patient identifiers checked. Call light placed in reach. Side rails up x 1. Bed placed in lowest position. Brakes of bed on. -- 06:45 05/09/24 PIPER Herman R.N. 06:49 05/09/24. Patient walked to radiology with cardiac cath lab radiology technologist. -- 06:49 05/09/24 PIPER Herman R.N. 06:55 05/09/24. Patient returned from radiology by stretcher with cardiac cath lab radiology technologist. -- 07:00 05/09/24 PIPER Herman R.N. 06:58 05/09/24. IV NS 0.9 % 1000 mL started in bag#1 1000 mL at 999 mL/hr via Site# 1. Allergies verified and confirmed 5 rights. IV patency established. IV site checked: no pain, redness, or swelling. IV flushed thoroughly pre-medication administration. Information reviewed with patient including reason for taking this medication. Verbalizes understanding. -- 06:58 05/09/24 PIPER Cha R.N. 06:59 05/09/24. KetorOLAC (Toradol) IVP 15 mg given via Site# 1. Allergies verified and confirmed 5 rights. IV patency established. IV site checked: no pain, redness, or swelling. IV flushed thoroughly pre-medication administration. Information reviewed with patient including reason for taking this medication. Verbalizes understanding. Medication Wastage: 15 mg wasted. -- 06:59 05/09/24 PIPER Cha R.N. 06:59 more content not included)... Normal [facility] ED ORDER SHEET (CPOE ONLY)on 05-09-2024 ED ORDER SHEET (CPOE ONLY) Order Sheet Order Sheet [facility] [address] [place] [address] [id number] 05/08/2024 [id number] Sex[facility] Male : 1990 Age: 33y MEASUREMENTS: Wt: 68.0 kg, Ht/Honorio: 68.0 in, BMI: 22.81 ALLERGIES: No known drug allergies MEDICATION/IV/DRIP/FLU ID ORDERS Order Description Priority Entered Acknowledged Completed Aspirin PO [id number] mg (NOW 00:57 05/09/2024 01:01 01:45 x1) Sushma Sotelo D.O. 05/09/2024 05/09/2024 Tara Yanes, R.N. KetorOLAC (Toradol) IVP30 mg 00:58 05/09/2024 01:01 01:44 (NOW x1) Sushma Sotelo D.O. 05/09/2024 05/09/2024 Tara Yanes, R.N. Reason for ordering with alerts: Clinical consideration given --00:58 05/09/2024 Sushma Sotelo D.O. LAB ORDERS Order Description Priority Entered Acknowledged Collected Completed CBC w Diff Stat Stat 00:57 05/09/2024 01:01 05/09/2024 01:42 05/09/2024 Jeronimo Snow R.N. Seth Lapp, R.N. BNP Stat Stat 00:57 05/09/2024 01:01 05/09/2024 01:42 05/09/2024 Jeronimo Snow R.N. Seth Lapp, R.N. 1 of 3 Order Sheet CMP Stat Stat 00:57 05/09/2024 01:01 05/09/2024 01:42 05/09/2024 Jeronimo Snow R.N. Seth Lapp, R.N. Troponin-I Stat Stat 00:57 05/09/2024 01:01 05/09/2024 01:42 05/09/2024 Jeronimo Snow R.N. Seth Lapp, R.N. D-Dimer Stat Stat 00:57 05/09/2024 01:01 05/09/2024 01:42 05/09/2024 Jeronimo Snow, Tara Cha, R.N. EKG - ED Stat Stat 00:57 05/09/2024 01:00 05/09/2024 Jeronimo Snow, R.N. Lipase Stat Stat 00:58 05/09/2024 01:01 05/09/2024 01:45 05/09/2024 Jeronimo Snow, Tara Cha, R.N. CRP Stat Stat 00:59 05/09/2024 01:01 05/09/2024 01:45 05/09/2024 Jeronimo Snow, Tara Cha, R.N. Troponin-I Stat Stat 03:00 05/09/2024 03:15 05/09/2024 Jeronimo Snow, R.NОлег DIAGNOSTIC STUDY ORDERS Order Description Priority Entered Acknowledged Completed Chest 1V Stat Stat 00:57 05/09/2024 01:01 01:46 Sushma Sotelo D.O. 05/09/2024 05/09/2024 Tara Yanes, R.N. Reason for Study: Chest Pain STAFF ORDERS 2 of 3 Order Sheet Order Description Priority Entered Acknowledged Collected Completed Obtain Old EKG 00:57 05/09/2024 01:01 05/09/2024 01:42 05/09/2024 Jeronimo Snow R.N. Seth Lapp, R.N. Oxygen titrate to 92% 00:57 05/09/2024 01:01 05/09/2024 01:42 05/09/2024 Jeronimo Snow R.N. Seth Lapp, R.N. Toll Bridge Attendant 00:57 05/09/2024 01:01 05/09/2024 01:42 05/09/2024 Jeronimo Snow, Tara Cha, R.N. Vital signs every 15 00:57 05/09/2024 01:01 05/09/2024 01:42 05/09/2024 minutes Jeronimo Snow R.N. Seth Lapp, R.N. Repeat EKG in 45 Min 00:57 05/09/2024 01:01 05/09/2024 01:42 05/09/2024 Jeronimo Snow R.N. Seth Lapp, R.N. IV Saline Lock 00:57 05/09/2024 01:01 05/09/2024 01:42 05/09/2024 Jeronimo Snow R.N. Seth Lapp, R.N. [Electronically signed by Sushma Sotelo D.O. (05/09/2024 19:42 EST)] 3 of 3 [facility] ED ORDER SHEET (CPOE ONLY) Order Sheet Order Sheet [address] [address] [id number] 05/09/2024 Patient: FLORECITA SPEARS Sex: Male : 1990 Age: 33y MEASUREMENTS: Wt: 61.2 kg, Ht/Honorio: 68.0 in, BMI: 20.53 ALLERGIES: Sulfa (Sulfonamide Antibiotics) MEDICATION/IV/DRIP/FLU ID ORDERS Order Description Priority Entered Acknowledged Completed IV NS 0.9 %1000 mL at 999 06:40 05/09/2024 06:46 06:58 mL/hr (NOW x1) Sushma Sotelo D.O. 05/09/2024 05/09/2024 Tara Roach R.NОлег KetorOLAC (Toradol) IVP15 mg 06:40 05/09/2024 06:46 06:59 (NOW x1) Sushma Sotelo D.O. 05/09/2024 05/09/2024 Tara Roach R.NОлег Zofran IVP4 mg (NOW x1) 06:40 05/09/2024 06:46 06:59 Sushma Sotelo D.O. 05/09/2024 05/09/2024 Leisa Herman R.N. [facility] R[facility]легNОлег Reason for ordering with alerts: Clinical consideration given --06:40 05/09/2024 Sushma Sotelo D.O. LAB ORDERS Order Description Priority Entered Acknowledged Collected Completed CBC w Diff Stat Stat 06:40 05/09/2024 06:46 05/09/2024 06:46 05/09/2024 Jeronimo Snow R.N. Anne Rutt, R.N. 1 of 2 Order Sheet CMP Stat Stat 06:40 05/09/2024 06:46 05/09/2024 06:46 05/09/2024 Jeronimo Snow R.N. Anne Rutt, R.N. Urinalysis Stat Stat 06:40 05/09/2024 06:46 05/09/2024 06:46 05/09/2024 Jeronimo Snow R.N. Anne Rutt, R.N. Drug Screen Urine Stat 06:41 05/09/2024 06:46 05/09/2024 06:46 05/09/2024 Medic Stat Jeronimo Snow R.N. Anne Rutt, R.N. Lipase Stat Stat 06:44 05/09/2024 06:46 05/09/2024 06:46 05/09/2024 Jeronimo Snow R.N. Anne Rutt, R.NОлег DIAGNOSTIC STUDY ORDERS Order Description Priority Entered Acknowledged Completed CT ABD/PEL wo Cont Stat Stat 06:40 05/09/2024 Cancelled: Wrong Order Sushma Sotelo D.O. 06:43 EST Sushma Sotelo D.O. Reason for Study: Abdominal Pain CT KUB (Kidney stone) Stat Stat 06:42 05/09/2024 06:46 07:00 Sushma Sotelo D.O. 05/09/2024 05/09/2024 Tara Roach, R.N. Reason for Study: Flank Pain STAFF ORDERS Order Description Priority Entered Acknowledged Collected Completed [Electronically signed by Sushma Sotelo D.O. (05/09/2024 19:30 EST)] 2 of 2 Normal [facility] ED PHYSICIAN CLINICAL REPORT on 05-09-2024 ED PHYSICIAN CLINICAL REPORT Narrative Physician Clinical Narrative [facility] [address] [place] [address] [id number] 05/08/2024 Patient: FLORECITA SPEARS Sex: Male : 1990 Age: 33y Disposition: Discharge to Home Disposition Decision Time: 03:52 05/09/2024 Departure Time: 04:00 05/09/2024 Measurements Wt: 68.0 kg, Ht/Honorio: 68.0 in, BMI: 22.81 Initial Vital Sign Measured Time BP MAP HR RR O2Sat ETCO2 Temp Pain GCS RTS 00:17 05/09/2024 133/90 104 75 18 98% 99.2 F 2 Time Seen: 00:44 05/09/2024. Arrived- By private vehicle. Historian- patient. Independent historian- family. HISTORY OF PRESENT ILLNESS Chief Complaint: CHEST PAIN. It is described as burning. No radiation. This started 1 weeks ago and is still present. At its maximum, severity described as 5 / 10. When seen in the E.D., severity described as 5 / 10. No nausea, vomiting, difficulty breathing or diaphoresis. Similar symptoms previously. None. Recent medical care: Not recently seen/assessed. REVIEW OF SYSTEMS MUSCULOSKELETAL: No joint pain. CONSTITUTIONAL: No fever or chills. RESPIRATORY: No cough. CVS: No pedal edema or calf pain. THROAT: No sore throat. GI: No abdominal pain or black stools. : No difficulty 1 of 11 Narrative with urination. SKIN: No skin rash. ENDO/HEME/LYMPH: No enlarged lymph nodes. NEUROLOGICAL: No fainting episodes or headache. EYES: No blurred vision. PAST HISTORY See nurses notes. no known problem Surgeries: no known surgical history Medications: traZODone 50 mg tablet: 50 mg once a day at bedtime. Allergies: no known drug allergies SOCIAL HISTORY Never smoker. No alcohol use or drug use. ADDITIONAL NOTES The nursing notes have been reviewed. PHYSICAL EXAM Appearance: Alert. Oriented X3. No acute distress. Eyes: Pupils equal, round and reactive to light. ENT: Nose normal. Pharynx normal. Neck: Normal inspection. Neck supple. CVS: Normal heart rate and rhythm. Heart sounds normal. Pulses normal. Respiratory: No respiratory distress. Chest pain reproducible with palpation of the sternum and anterior chest wall. Breath sounds normal. Abdomen: Soft and nontender. Bowel sounds normal. No organomegaly. No mass. Back: Normal external inspection. Skin: Skin warm and dry. No rash. 2 of 11 Narrative Extremities: Extremities exhibit normal ROM. No lower extremity edema. Neuro: Oriented X 3. No motor deficit. No sensory deficit. LABS, X-RAYS, AND EKG 12-LEAD EKG: EKG time: 23:51 05/09/2024. Normal sinus rhythm. Rate: 80. Normal P waves. Normal QRS complex. Normal axis. Normal ST and T waves. The study has been interpreted contemporaneously by me. Interpretation time: 23:51 05/09/2024. Chest X-ray: No acute disease. Views: PA. The X-rays were independently viewed by me. Interpretation time: 02:02 05/09/2024. Laboratory Tests: C-REACTIVE PROTEIN Final MAYUR: 05/09/2024 01:47:00 EST MsgRcvd: 05/09/2024 02:23 EST Lab Test Result Reference Status Received Comments 05/09/2024 02:23 CRP <0.50 mg/dl 0.00 - 0.90 Final EST CBC + DIFF Final MAYUR: 05/09/2024 01:47:00 EST MsgRcvd: 05/09/2024 02:21 EST Lab Test Result Reference Status Received Comments 05/09/2024 02:21 CBC-COMPLETE CBC + DIFF Final EST BLOOD COUNT 05/09/2024 02:21 WBC 8.4 x 10/UL 4.5 - 10.8 Final EST 05/09/2024 02:21 RBC 4.93 x 10/UL 4.50 - 6.00 Final EST 05/09/2024 02:21 HEMOGLOBIN 15.1 g/dl 13.0 - 17.5 Final EST 3 of 11 Narrative 05/09/2024 02:21 HEMATOCRIT 42.8 % 40.0 - 52.0 Final EST 05/09/2024 02:21 MCV 87 fl 81 - 98 Final EST 05/09/2024 02:21 MCH 31 pg 27 - 33 Final EST 05/09/2024 02:21 MCHC 35 X10 3 32 - 36 Final EST 05/09/2024 02:21 RDW/CV 12.9 % 12.0 - 15.6 Final EST 05/09/2024 02:21 PLATELET 235 x10/UL 150 - 450 Final EST 6.0 fl 05/09/2024 02:21 AUTOMATED MPV 6.4 - 10.5 Final Below low normal EST DIFFERENTIAL 05/09/2024 02:21 NEUT % 56.6 % 46.0 - 76.0 Final EST 05/09/2024 02:21 LYMPH % 31.7 % 20.0 - 45.0 Final EST 05/09/2024 02:21 MONOS % 8.5 % 0.0 - 10.0 Final EST 05/09/2024 02:21 EO % 3.1 % 0.0 - 7.0 Final EST 05/09/2024 02:21 BASO % 0.2 % 0.0 - 2.0 Final EST 05/09/2024 02:21 Lymph # 2.67 x10/UL 0.80 - 2.80 Final EST 05/09/2024 02:21 Neut # 4.76 x10/UL 1.50 - 7.10 Final EST 4 of 11 Narrative 05/09/2024 02:21 [place] # 0.71 x10/UL 0.20 - 1.00 Final EST 05/09/2024 02:21 EO # 0.26 x10/UL 0.00 - 0.50 Final EST 05/09/2024 02:21 Baso # 0.02 x10/UL 0.00 - 0.10 Final EST 05/09/2024 02:21 MANUAL DIFF N/A New Order EST 05/09/2024 02:21 MORPHOLOGY REVIEWED Final EST CMP with eGFR Final MAYUR: 05/09/2024 01:47:00 EST MsgRcvd: 05/09/2024 02:23 EST Lab Test Result Reference Status Received Com (more content not included)... Normal [facility] ED PHYSICIAN CLINICAL REPORT Narrative Physician Clinical Narrative [facility] [address] [place] [address] [phone] 05/09/2024 Patient: FLORECITA SPEARS Sex: Male : 1990 Age: 33y Disposition: Discharge to Home Disposition Decision Time: 07:19 05/09/2024 Departure Time: 08:03 05/09/2024 Measurements Wt: 61.2 kg, Ht/Honorio: 68.0 in, BMI: 20.53 Initial Vital Sign Measured Time BP MAP HR RR O2Sat ETCO2 Temp Pain GCS RTS 06:05/09/2024 123/57 79 79 18 100% 98.4 F 10 Time Seen: 06:05/09/2024. Arrived- By private vehicle. Historian- patient. HISTORY OF PRESENT ILLNESS Chief Complaint: FLANK PAIN. It is described as sharp and it is described as located in the left flank and radiating to the left lower quadrant of the abdomen. This started yesterday and is still present. The patient has had nausea. No loss of appetite, vomiting or diarrhea. No recent travel. Similar symptoms previously. None. Recent medical care: Not recently seen/assessed. REVIEW OF SYSTEMS 1 of 14 Narrative RESPIRATORY: No difficulty breathing or cough. SKIN: No skin rash. EYES: No blurred vision. THROAT: No sore throat. NEUROLOGICAL: No headache. CONSTITUTIONAL: No fever or chills. The patient has not had weight loss. : No difficulty with urination or urinary frequency. The patient has had pain on urination. GI: No constipation, black stools or hematemesis. MUSCULOSKELETAL: No joint pain. The patient has had back pain. CVS: No chest pain. PAST HISTORY See nurses notes. No history of peptic ulcer. No history of gallstones, bowel obstruction, heart disease, lung disease or renal disease. No history of hypertension, hyperlipidemia, neurological disease, GI disease or other disease. No history of diabetes mellitus. Has not had urinary calculi. no known problem Surgeries: No prior abdominal surgery. Surgeries: no known surgical history Medications: traZODone 50 mg tablet: 50 mg once a day at bedtime. Allergies: Sulfa (Sulfonamide Antibiotics) SOCIAL HISTORY Never smoker. No alcohol use or drug use. ADDITIONAL NOTES The nursing notes have been reviewed. PHYSICAL EXAM Appearance: Alert. Oriented X3. No acute distress. Eyes: Pupils equal, round and reactive to light. 2 of 14 Narrative ENT: Nose normal. Pharynx normal. Neck: Normal inspection. Neck supple. CVS: Normal heart rate and rhythm. Heart sounds normal. Pulses normal. Respiratory: No respiratory distress. Breath sounds normal. Abdomen: Soft and nontender. Bowel sounds normal. No organomegaly. No mass. Back: Normal inspection. Skin: Skin warm and dry. No rash. Extremities: Extremities exhibit normal ROM. No lower extremity edema. Neuro: Oriented X 3. No motor deficit. No sensory deficit. LABS, X-RAYS, AND EKG CT Abdomen - Pelvis: A urinary calculus is present in the left distal ureter (2.5 mm). There is mild obstruction. Abdomen - pelvic CT performed without contrast. The study was interpreted by the radiologist. Interpretation time: 07:02 05/09/2024. Laboratory Tests: CBC + DIFF Final MAYUR: 05/09/2024 06:44:00 EST MsgRcvd: 05/09/2024 07:17 EST Lab Test Result Reference Status Received Comments 05/09/2024 07:17 CBC-COMPLETE CBC + DIFF Final EST BLOOD COUNT 05/09/2024 07:17 WBC 7.5 x 10/UL 4.5 - 10.8 Final EST 05/09/2024 07:17 RBC 5.06 x 10/UL 4.50 - 6.00 Final EST 05/09/2024 07:17 HEMOGLOBIN 15.4 g/dl 13.0 - 17.5 Final EST 05/09/2024 07:17 HEMATOCRIT 43.5 % 40.0 - 52.0 Final EST 3 of 14 Narrative 05/09/2024 07:17 MCV 86 fl 81 - 98 Final EST 05/09/2024 07:17 MCH 30 pg 27 - 33 Final EST 05/09/2024 07:17 MCHC 35 X10 3 32 - 36 Final EST 05/09/2024 07:17 RDW/CV 13.7 % 12.0 - 15.6 Final EST 05/09/2024 07:17 PLATELET 234 x10/UL 150 - 450 Final EST 05/09/2024 07:17 AUTOMATED MPV 6.6 fl 6.4 - 10.5 Final EST DIFFERENTIAL 05/09/2024 07:17 NEUT % 66.7 % 46.0 - 76.0 Final EST 05/09/2024 07:17 LYMPH % 23.8 % 20.0 - 45.0 Final EST 05/09/2024 07:17 MONOS % 5.7 % 0.0 - 10.0 Final EST 05/09/2024 07:17 EO % 3.5 % 0.0 - 7.0 Final EST 05/09/2024 07:17 BASO % 0.3 % 0.0 - 2.0 Final EST 05/09/2024 07:17 Lymph # 1.79 x10/UL 0.80 - 2.80 Final EST 05/09/2024 07:17 Neut # 5.03 x10/UL 1.50 - 7.10 Final EST 05/09/2024 07:17 [place] # 0.43 x10/UL 0.20 - 1.00 Final EST 4 of 14 Narrative 05/09/2024 07:17 EO # 0.26 x10/UL 0.00 - 0.50 Final EST 05/09/2024 07:17 Baso # 0.03 x10/UL 0.00 - 0.10 Final EST 05/09/2024 07:17 MANUAL DIFF N/A New Order EST 05/09/2024 07:17 MORPHOLOGY N/A New Order EST CMP with eGFR Final MAYUR: 05/09/2024 06:44:00 EST MsgRcvd: 05/09/2024 07:22 EST Lab Test Result Reference Status Received Comments COMPREHENSIVE (more content not included)... Normal [facility] [address] [id number] 05/08/2024 Patient: FLORECITA SPEARS Sex: Male : 1990 Age: 33y Item Facility Professional Category Description Code Code Quantity Fee Total Nurse/E/M EMERGENCY 304891 1 $0.00 $0.00 DEPARTMENT VISIT HIGH/URGENT SEVERITY (92785-83) Nurse/IV/IM/Infusions IVP initial 230303 1 $0.00 $0.00 (31901) Grand Total $0.00 Providers Sushma Sotelo D.O. Chief Complaint CHEST PAIN. Principal Diagnosis Atypical chest pain 1 of 2 [facility] ICD-10 Codes R07.89: Other chest pain 2 of 2 Normal [facility] ED SUPER BILL [address] [address] [id number] 05/09/2024 Patient: FLORECITA SPEARS Sex: Male : 1990 Age: 33y Item Facility Professional Category Description Code Code Quantity Fee Total Drugs Normal Saline 066290 1 $0.00 $0.00 1000cc (906396) Nurse/E/M EMERGENCY 545375 1 $0.00 $0.00 DEPARTMENT VISIT HIGH/URGENT SEVERITY (43554-12) Nurse/IV/IM/Infusions Hydration 384876 1 $0.00 $0.00 additional hour (85233) Nurse/IV/IM/Infusions IVP additional 612081 1 $0.00 $0.00 push (26777) Nurse/IV/IM/Infusions IVP initial 379065 1 $0.00 $0.00 (79170) Grand Total $0.00 Providers Sushma Sotelo D.O. 1 of 2 [facility] Chief Complaint FLANK PAIN. Principal Diagnosis Ureterolithiasis (single stone) in the left ureter with hydronephrosis. ICD-10 Codes N20.1: Calculus of ureter 2 of 2 Normal [facility] ED VISIT SUMMARYon ED VISIT SUMMARY Visit Overview Visit Overview [address] [address] [id number] 05/08/2024 Patient: FLORECITA SPEARS Sex: Male : 1990 Age: 33y 05/09/2024 07:42 PM EST ED Arrival:23:42 05/08/2024 EST Status: Recent Travel:no Language:eng Adv Directive: Isolation Status: Ethnicity:N Fall Risk:no risk Infectious Disease Exposure:no Measurements:5'8 / 172.7 Self-Harm Status:risk Sepsis Screen:negative cm 150.0 lb / 68.0 kg Chief Complaint:CHEST PAIN, (CHEST PAIN X1 WEEK THAT COMES AND GOES INTERMITTENTLY ), and (TINGLING IN CHEST) ALLERGIES No Known Drug Allergies HOME MEDICATIONS traZODone 50 mg tablet: 50 mg once a day at bedtime. PAST MEDICAL HISTORY / PROBLEMS 1 of 3 Visit Overview Immunizations: up-to-date None See nurses notes PAST SURGICAL HISTORY No history of previous surgery No Surgeries SOCIAL HISTORY Nutritional assessment: No deficits Functional assessment: No impairments Learning needs: No barriers Smoking status: No Alcohol use: No Drug use: No ED COURSE MEDICATIONS GIVEN IN EMERGENCY DEPARTMENT 01:43 05/09/24 KetorOLAC (Toradol) IVP 30 mg 01:44 05/09/24 Aspirin PO Chew 324 mg IV SITE INFORMATION INTAKE OUTPUT REASSESMENT (most recent) 01:25 05/09/24. Ambulatory to room. ( 2/10 mid sternal chest pressure for 1 week). GENERAL / NEURO / PSYCH: Alert. Oriented X 4. Appears in no acute distress. ( on phone). RESPIRATORY: Respirations not labored. CVS: Normal sinus rhythm noted. VITAL SIGNS First Vitals Last Vitals Temp 00:17 05/09/24 99.2 F Temp 03:42 05/09/24 2 of 3 Visit Overview First Vitals Last Vitals BP 00:17 05/09/24 133/90 BP 03:42 05/09/24 128/70 HR 00:17 05/09/24 75 HR 03:42 05/09/24 66 RR 00:17 05/09/24 18 RR 03:42 05/09/24 18 O2 Sat 00:17 05/09/24 98% O2 Sat 03:42 05/09/24 97% Pain 00:17 05/09/24 2 Pain 03:42 05/09/24 ETCO2 00:17 05/09/24 ETCO2 03:42 05/09/24 GCS 00:17 05/09/24 GCS 03:42 05/09/24 RTS 00:17 05/09/24 RTS 03:42 05/09/24 PROCEDURES NURSING INTERVENTIONS LABS / STUDIES LABS / STUDIES ORDERED BNP CBC w Diff Chest 1V CMP CRP D-Dimer EKG - ED Lipase Troponin-I Troponin-I CLINICAL IMPRESSION ATYPICAL CHEST PAIN 3 of 3 Normal [facility] ED VISIT SUMMARY Visit Overview Visit Overview [address] [place] [address] [id number] 05/09/2024 Patient: FLORECITA SPEARS Sex: Male : 1990 Age: 33y 05/09/2024 07:30 PM EST ED Arrival:06:24 05/09/2024 EST Status: Recent Travel:no Language:eng Adv Directive: Isolation Status: Ethnicity:N Fall Risk:no risk Infectious Disease Exposure:no Measurements:5'8 / 172.7 Self-Harm Status:risk Sepsis Screen:negative cm 135.0 lb / 61.2 kg Chief Complaint:PAIN WITH URINATION and (flank pain, burning penis) ALLERGIES Sulfa (Sulfonamide Antibiotics) HOME MEDICATIONS traZODone 50 mg tablet: 50 mg once a day at bedtime. PAST MEDICAL HISTORY / PROBLEMS None See nurses notes 1 of 3 Visit Overview PAST SURGICAL HISTORY No Surgeries SOCIAL HISTORY Nutritional assessment: No deficits Smoking status: No Alcohol use: No Drug use: No ED COURSE MEDICATIONS GIVEN IN EMERGENCY DEPARTMENT 06:58 05/09/24 IV NS 0.9 % 1000 mL 999 mL/hr 06:59 05/09/24 KetorOLAC (Toradol) IVP 15 mg 06:59 05/09/24 Zofran IVP 4 mg IV SITE INFORMATION INTAKE OUTPUT REASSESMENT (most recent) 06:54 05/09/24. GENERAL / NEURO / PSYCH: Appears in pain. ( Left flank pain). HEENT: Mucous membranes are pink. RESPIRATORY: Respirations not labored. Breath sounds within normal limits. CVS: Normal heart rate and rhythm. Capillary refill less than 2 seconds. GI / : Abdomen soft and nontender. Bowel sounds within normal limits. ( penis is burning). SKIN: Skin is warm and dry. VITAL SIGNS First Vitals Last Vitals Temp 06:28 05/09/24 98.4 F Temp 07:55 05/09/24 BP 06:28 05/09/24 123/57 BP 07:55 05/09/24 HR 06:28 05/09/24 79 HR 07:55 05/09/24 65 RR 06:28 05/09/24 18 RR 07:55 05/09/24 O2 Sat 06:28 05/09/24 100% O2 Sat 07:55 05/09/24 98% Pain 06:28 05/09/24 10 Pain 07:55 05/09/24 ETCO2 06:28 05/09/24 ETCO2 07:55 05/09/24 2 of 3 Visit Overview First Vitals Last Vitals GCS 06:28 05/09/24 GCS 07:55 05/09/24 RTS 06:28 05/09/24 RTS 07:55 05/09/24 PROCEDURES NURSING INTERVENTIONS LABS / STUDIES LABS / STUDIES ORDERED CBC w Diff CMP CT KUB (Kidney stone) Drug Screen Urine Medic Lipase Urinalysis CLINICAL IMPRESSION URETEROLITHIASIS (SINGLE STONE) IN THE LEFT URETER WITH HYDRONEPHROSIS 3 of 3 Normal [facility] ED VITALS FLOW SHEETon 05-09 ED VITALS FLOW SHEET Vitals Vital Sign Flow Sheet [address] [address] [id number] 05/08/2024 Patient: FLORECITA SPEARS Sex: Male : 1990 Age: 33y Measurements Wt: 68.0 kg, Ht/Honorio: 68.0 in, BMI: 22.81 Measured Time BP MAP HR RR O2Sat ETCO2 Temp Pain GCS RTS 03:42 05/09/2024 128/70 89 66 18 97% 00:17 05/09/2024 133/90 104 75 18 98% 99.2 F 2 1 of 1 Normal [facility] ED VITALS FLOW SHEET Vitals Vital Sign Flow Sheet [address] [address] [id number] 05/09/2024 Patient: FLORECITA SPEARS Sex: Male : 1990 Age: 33y Measurements Wt: 61.2 kg, Ht/Honorio: 68.0 in, BMI: 20.53 Measured Time BP MAP HR RR O2Sat ETCO2 Temp Pain GCS RTS 07:55 05/09/2024 65 98% 07:54 05/09/2024 109/61 71 60 07:50 05/09/2024 59 98% 07:45 05/09/2024 65 99% 07:40 05/09/2024 77 99% 07:39 05/09/2024 110/70 80 77 07:35 05/09/2024 76 100% 07:30 05/09/2024 73 100% 07:25 05/09/2024 79 100% 07:24 05/09/2024 120/71 84 79 07:20 05/09/2024 91 100% 07:15 05/09/2024 74 100% 07:10 05/09/2024 74 99% 07:09 05/09/2024 116/64 81 74 07:05 05/09/2024 72 98% 1 of 2 Vitals Measured Time BP MAP HR RR O2Sat ETCO2 Temp Pain GCS RTS 07:00 05/09/2024 86 99% 06:55 05/09/2024 85 100% 06:54 05/09/2024 137/90 105 87 06:45 05/09/2024 76 99% 06:28 05/09/2024 123/57 79 79 18 100% 98.4 F 10 2 of 2 Normal [facility] LIPASEon 05-09-2024 Lipase [Catalytic activity/Vol] 33.0 U/L Normal 15.0 - 78.0 [facility] Comment on above: Result Comment: *PLE ASE NOTE THAT RANGES FOR LIPASE HAVE CHANGED OF 05/14/23 DUE TO AN ASSAY UPDATE BY THE [employer] EM[employer].THE NEW ASSAY RANGE IS 6-250 U/L, WITH A REFERENCE RANGE OF 16-77 U/L. Performed By: #### 2 [id number] #### [place] [id number] Lipase [Catalytic activity/Vol] 35.0 U/L Normal 15.0 - 78.0 [facility] Comment on above: Result Comment: *PLE ASE NOTE THAT RANGES FOR LIPASE HAVE CHANGED OF 05/14/23 DUE TO AN ASSAY UPDATE BY THE [employer]EE.THE NEW ASSAY RANGE IS 6-250 U/L, WITH A REFERENCE RANGE OF 16-77 U/L. Performed By: #### 2 [id number] ####[place] [id number] NT-proBNPon 05-09-2024 Natriuretic peptide B (Bld) [Mass/Vol] 11 pg/mL Normal 0 - 125 [facility] Comment on above: Performed By: #### 2 76757 #### [place] [id number] TROPONINon 05-09-2024 HS TROPONIN 4.7 pg/mL Normal 0.0 - 76.2 [facility] Comment on above: Performed By: #### 2 [id number] #### [facility],[address] [place] [address] HS TROPONIN 4.3 pg/mL Normal 0.0 - 76.2 [facility] Comment on above: Performed By: #### 2 11983 #### [facility],[address] [place] [address] URINALYSISon 05-09-2024 Amorphous NONE Normal [facility] Comment on above: Performed By: #### 2 56072 #### [facility],[address] [place] [address] Bacteria NONE Normal [facility] Comment on above: Performed By: #### 2 93517 #### [facility],[address] [place] [address] Bilirubin Ql (U) Negative Normal NORMAL: NEGATIVE [facility] Comment on above: Performed By: #### 2 44074 #### [facility],[address] [place] [address] Casts NONE Normal [facility] Comment on above: Performed By: #### 2 13386 #### [facility],[address] [place] [address] Clarity (U) clear Normal NORMAL: CLEAR [facility] Comment on above: Performed By: #### 2 80493 #### [facility],[address] [place], [place] [id number] Color (U) osmel Normal NORMAL: YELLOW [facility] Comment on above: Performed By: #### 2 26612 #### [facility],[address] [place], [place] [id number] Crystals LM Nom (Urine sed) NONE Normal [facility] Comment on above: Performed By: #### 2 77810 #### [facility],[address] [place], [place] [id number] Epi Cells OCC Normal [facility] Comment on above: Performed By: #### 2 02037 #### [facility],[address] [place] [address] Glucose Ql (U) NORM Normal NORMAL: NORMAL [facility] Comment on above: Performed By: #### 2 28383 #### [facility],[address] [place] [address] Hemoglobin Ql (U) 150 Abnormal NORMAL: NEGATIVE [facility] Comment on above: Performed By: #### 2 80032 #### [facility],[address] [place] [address] Ketone 5 Abnormal NORMAL: NEGATIVE [facility] Comment on above: Performed By: #### 2 71452 #### [facility],[address] [place] [address] Leukocytes Negative Normal NORMAL: NEGATIVE [facility] Comment on above: Performed By: #### 2 54954 #### [facility],[address] [place], [place] [phone] Mucous 2+ Normal [facility] Comment on above: Performed By: #### 2 84910 #### [facility],[address] [place] [address] Nitrite Ql (U) Negative Normal NORMAL: NEGATIVE [facility] Comment on above: Performed By: #### 2 30976 #### [facility],[address] [place] [address] pH (U) 6 [pH] Normal NORMAL: 5.0-8.0 [facility] Comment on above: Performed By: #### 2 76673 #### [facility],[address] [place] [address] Protein Ql (U) 30 Abnormal NORMAL: NEGATIVE [facility] Comment on above: Performed By: #### 2 80993 #### [facility],[address] [place] [address] Rbc 10-15 Normal 0-3/hpf [facility] Comment on above: Performed By: #### 2 29234 #### [facility],[address] [place] [address] Sp [place] 1.025 Normal NORMAL: 1.010-1.030 [facility] Comment on above: Performed By: #### 2 83269 #### [facility],[address] [place] [address] Specimen Type R Normal [facility] Comment on above: Performed By: #### 2 22436 #### [facility],[address] [place] [address] Urinalysis dipstick W Reflex Microscopic panel (U) SEE BELOW Normal [facility] Comment on above: Result Comment: MICR OSCOPIC Performed By: #### 2 70325 #### [facility],[address] [place] [address] Urobilinog 1 Abnormal NORMAL: NORMAL [facility] Comment on above: Performed By: #### 2 35002 #### [facility],[address] [place] [address] Wbc NONE Normal 0-5/hpf [facility] Comment on above: Performed By: #### 2 68068 #### [facility],[address] [place] [address] Yeast NONE Normal [facility] Comment on above: Performed By: #### 2 75597 #### [facility],[address] [place] [address] Progress Noteson 05-06-2022 Organ Builder Authentication Interface Message Text Name: FLORECITA SPEARS MR#: [id number] ENC#: [id number] Date of Visit: 05/04/2022 CHIEF COMPLAINT: Pelvic pain and hematospermia. HISTORY OF PRESENT ILLNESS: The patient is a 31-year-old male who has had chronic history of pelvic pain and prostatitis on many different occasions; however, currently this is not improving. He was treated recently with antibiotics without any significant improvement in the symptoms. He has no significant dysuria, but does report urgency, pressure, and pain in the perineum, pain with ejaculation, as well as hematospermia. Today, he voided 154 mL with a peak flow of 60 mL/second. It is a goldman-shaped curve. After that, he was placed in supine position. Ultrasound probe was placed over the lower abdomen. Bladder scan was performed for postvoid residual of 3 mL. Urine showed no blood, nitrite, or leukocyte esterase. No evidence of infection. He does have a family history of prostate cancer in his grandfather who was diagnosed in his late 60s to 70s. No PSAs and these are not necessary given his age of 31. I have recommended sending the urine for STD panel, urine culture to further evaluate. No antibiotics for now, I just suspect he likely has chronic pelvic pain, so bladder diet was discussed and given to him. He will follow up with Giselle Ding for further management of pelvic pain in the future he declined this for now. IMPRESSION: Chronic prostatitis with recent exacerbation of chronic pelvic pain with recent exacerbation. He will try the bladder diet and follow up with Giselle Ding for further management. Ureaplasma, GC, chlamydia, and urine culture were also sent. MedQ/IJL/ JOB: [id number] DictJob#: [id number] Normal [facility] GC/CHLAMYDIA/TRICHOMONAS AMP LIFICATIONon 05-05-2022 C. trachomatis DNA DIOR+probe Ql (Unsp spec) Negative Negative [facility] Interpretation and review of laboratory results Normal [facility] N. gonorrhoeae DNA DIOR+probe Ql (Unsp spec) Negative Negative [facility] T. vaginalis DNA DIOR+probe Ql (Unsp spec) Negative Negative [facility] This test is perform ed using an automated nucleic acid amplification assay ([employer] [facility] Progress Noteson 05-05-2022 Organ Builder Authentication Interface Message Text [id number] Normal [facility] URINE CULTUREOrdered By: Wang Gates on 05-05-2022 Bacteria identified Cx Nom (U) No growth of greater than 1,000 CFU/ml [facility] Interpretation and review of laboratory results Normal [facility] GC/CHLAMYDIA/TRICHOMONAS AMP LIFICATIONon 05-04-2022 GC/CHLAMYDIA/TRICHOM ONAS AMPLIFICATION CHLAMYDIA AMPLIFICATION: Negative GC AMPLIFICATION: Negative TRICHOMONAS AMPLIFICATION: Negative Normal Negative [facility] Comment on above: Order Comment: This test is performed using an automated nucleic acid amplification assay ([employer] Performed By: #### G CT #### [facility] [address] [facility] [address] [place], [place] Progress Noteson 05-04-2022 Organ Builder Authentication Interface Message Text Identification was verified by patient verbalizing his name and date of . Normal [facility] UREAPLASMA/MYCOPLASMA CULTUR Maximo 05-04-2022 UREAPLASMA/MYCOPLASM A CULTURE MYCOPLASMA HOMINIS: see note Mycoplasma hominis not isolated. UREAPLASMA SPECIES: see note Ureaplasma urealyticum not isolated. Normal [facility] Comment on above: Order Comment: Marcell duncan Agency Address Site ID: AMD Name[facility] Address: [address] [place] [address] [place] [address] Director: Red Nino M.D.,PhD Performed By: #### C UREAPLAS #### [facility] [address] [facility] [place], [place] URINALYSIS,AUTO-IN OFFICEon 05-04-2022 BILIRUBIN, URINE POC Negative Normal Negative [facility] Comment on above: Order Comment: TEST PERFOMRED AT: [facility] [address] [place] [address] Performed By: #### 8 1003 #### [facility] [address] [facility] [address] [place], [place] BLOOD, URINE POC Negative Normal Negative [facility] Comment on above: Order Comment: TEST PERFOMRED AT: [facility] [address] [place] [address] Performed By: #### 8 1003 #### [facility] [address] [facility] [address] [place] CLARITY, POC Clear Normal [facility] Comment on above: Order Comment: TEST PERFOMRED AT: [facility] [address] [place], [place] Performed By: #### 8 1003 #### [facility] [address] [place] COLOR, POC Yellow Normal [facility] Comment on above: Order Comment: TEST PERFOMRED AT: [facility] [address] [place], [place] Performed By: #### 8 1003 #### [facility] [address] [place] GLUCOSE, URINE POC Negative Normal Negative [facility] Comment on above: Order Comment: TEST PERFOMRED AT: [facility] [address] [place], [place] Performed By: #### 8 1003 #### [facility] [address] [facility] [place], [place] KETONES, URINE POC Negative Normal Negative [facility] Comment on above: Order Comment: TEST PERFOMRED AT: [facility] [address] [place], [place] Performed By: #### 8 1003 #### [facility] [address] [facility] [place], [place] LEUKOCYTES, URINE POC Negative Normal Negative [facility] Comment on above: Order Comment: TEST PERFOMRED AT: [facility] [address] [place], [place] Performed By: #### 8 1003 #### [facility] [address] [facility] [place], [place] NITRITES, URINE POC Negative Normal Negative [facility] Comment on above: Order Comment: TEST PERFOMRED AT: [facility] [address] [place], [place] Performed By: #### 8 1003 #### [facility] [address] [place] PH, URINE POC 7.0 Normal 5.0-8.[address] [facility] Comment on above: Order Comment: TEST PERFOMRED AT: [facility] POC Lab [address] [place], [place] Performed By: #### 8 1003 #### [facility] [address] [place] [address] Dr [place], [place] PROTEIN, URINE POC Negative Normal Negative [facility] Comment on above: Order Comment: TEST PERFOMRED AT: Surgery [facility] POC Lab [address] [place] [address] Performed By: #### 8 1003 #### [facility] [address] [facility] [place], [place] SPECIFIC GRAVITY, POC 1.020 Normal 1.005 - 1.030 [facility] Comment on above: Order Comment: TEST PERFOMRED AT: [facility] POC Lab [address] [place] [address] Performed By: #### 8 1003 #### [facility] [address] [facility] [place], [place] UROBILINOGEN, URINE POC 0.2 Normal 0.2 - 1.0 [facility] Comment on above: Order Comment: TEST PERFOMRED AT: [facility] POC Lab [address] [place] [address] Performed By: #### 8 1003 #### [facility] [address] [place] [address] [place], [place] Bilirubin Ql (U) Negative Negative [facility] Clarity (U) Clear [facility] Color (U) Yellow [facility] Glucose Auto test strip (U) [Mass/Vol] Negative Negative [facility] Hemoglobin Ql (U) Negative Negative [facility] Ketones Ql (U) Negative Negative [facility] Leukocyte esterase Test strip Ql (U) Negative Negative [facility] Nitrite Ql (U) Negative Negative [facility] pH (U) 7.0 [pH] 5.0 - 8.0 [facility] Protein (U) [Mass/Vol] Negative Negative [facility] Specific gravity (U) [Rel density] 1.020 1.005 - 1.030 [facility] Urobilinogen Qn (U) 0.2 0.2 - 1.0 [facility] TEST PERFOMRED AT: Surgery [facility] POC Lab [address] [place], [place] [id number] [facility] URINE CULTUREon 05-04-2022 Bacteria identified Cx Nom (U) C URINE: No growth of greater than 1,000 CFU/ml Normal [facility] Comment on above: Performed By: #### C URINE #### [facility] [address] [place] [address] Dr [place], [place] [address] Testosterone, Tot/Fron 03-21 Testosterone [Mass/Vol] 566 ng/dL Normal 240-950 [facility] Reference Lab Comment on above: Performed By: #### T ESTO #### [facility] Laboratories Routine Lab [address] [place], [place] [address] Testosterone, Free 20.4 ng/dL High 5.05-19.8 [facility] Reference Lab Comment on above: Performed By: #### T ESTO #### [facility] Laboratories Routine Lab [address] [place], [place] [address] Testosteroneon 03-02-2021 Testosterone [Mass/Vol] 504 ng/dL Normal 193-824 [facility] Reference Lab Comment on above: Performed By: #### T ESTO #### [facility] Laboratories Routine Lab [address] [place], [place] [id number] Vital Signs Date Time Vital Sign Value Performing Clinician Faci lity 12-19-2024 16:44-0400 Body temperature 98 [degF] No Primary Care Physician [facility] 12-19-2024 16:44-0400 Diastolic blood pressure 86 mm[Hg] No Primary Care Physician [facility] 12-19-2024 16:44-0400 Heart rate 92 /min No Primary Care Physician [facility] 12-19-2024 16:44-0400 Respiratory rate 15 /min No Primary Care Physician [facility] 12-19-2024 16:44-0400 SaO2% (BldA) [Mass fraction] 98 % No Primary Care Physician [facility] 12-19-2024 16:44-0400 Systolic blood pressure 134 mm[Hg] No Primary Care Physician [facility] 12-19-2024 16:13-0400 Body height 172.72 cm No Primary Care Physician [facility] 12-19-2024 16:13-0400 Body mass index (BMI) [Ratio] 22.3 kg/m2 No Primary Care Physician [facility] 12-19-2024 16:13-0400 Body weight 66.67 kg No Primary Care Physician [facility] Encounters Encounter Date Encounter Type Care Provider Facility Start: 12-19-2024 End: 12-19-2024 Emergency department patient visit No Primary Care Physician -Emergency Department Work Phone: Start: 11-14-2024 End: 11-14-2024 ambulatory PATIENT UNSURE PHYSICIAN Facility:[facility] Start: 11-14-2024 End: 11-14-2024 Patient encounter procedure CELESTINO HAMM WARDROBE ATTENDANT-TRACTOR OPERATOR HELPER [facility] Start: 10-21-2024 End: 10-21-2024 Emergency department patient visit SHAILA LOVELL [facility] Start: 10-20-2024 End: 10-24-2024 ambulatory CELESTINO Shiva HANSEL WARDROBE ATTENDANT-TRACTOR OPERATOR HELPER Facility:A Start: 10-20-2024 End: 10-20-2024 Patient encounter procedure CELESTINO HAMM WARDROBE ATTENDANT-TRACTOR OPERATOR HELPER [facility] Start: 05-13-2024 End: 05-14-2024 Emergency department patient visit STEFANO NIXON [facility] Start: 05-09-2024 End: 05-09-2024 Emergency department patient visit [facility] Start: 05-08-2024 End: 05-09-2024 Emergency department patient visit [facility] Start: 05-04-2022 End: 05-05-2022 ambulatory UNKNOWN PROVIDER Facility:[facility] Start: 05-04-2022 End: 05-05-2022 Office outpatient new 45 minutes Nancy Michelle MD Work Phone: [facility] Urologic Surgery Comment on above: Hematospermia (Prima ry Dx); Pelvic pain Procedures Date Procedure Procedure Detail Performing Clinician Start: 05-14-2024 Urinalysis SUSHMA Stevens Comment on above: Result Comment: URIN ALYSIS Performed By: #### 2 [id number] #### [facility],[address] [place] [address] Start: 05-09-2024 Urinalysis SUSHMA Stevens Comment on above: Result Comment: URIN ALYSIS Performed By: #### 2 48797 #### Sorin [facility],[address] [address] Start: 05-05-2022 Complex uroflometry Tahira Michelle MD Work Phone: Start: 05-04-2022 Iadna nos amplified probe tq each organism Nancy Michelle MD Work Phone: Start: 05-04-2022 Urine culture Nancy burleson MD Work Phone: Start: 05-04-2022 Urnls dip stick/tabl et rgnt auto w/o microscopy Nancy Michelle MD Work Phone: Plan of Treatment Date Care Activity Detail Author Start: 2041 Shingles (RZV) Vaccine (1 of 2) Shingles (RZV) Vaccine (1 of 2) [facility] Start: 06-19-2022 End: 06-19-2022 Patient encounter procedure 06/19/2022 Office Visit Urology Giselle Ding, ROE-TRACTOR OPERATOR HELPER [address] [place] [address] [facility] Urologic Surgery Start: 02-14-2022 Influenza vaccination Influenza Vaccine (#1) [facility] Start: 2009 Hepatitis C screening Hepatitis C Antibody [facility] Start: 2009 Tetanus + diphtheria + acellular pertussis vaccine (product) Tdap Booster [facility] Start: 2006 HIV screening HIV Test [facility] Start: 01-07-1992 COVID-19 Vaccine (#1) COVID-19 Vaccine (#1) [facility] Culture mycoplasma a ny source UREAPLASMA/MYCOPLASMA CULTURE Microbiology Routine Hematospermia Pelvic pain 05/04/2022 2:07 PM EST [facility] Work Phone: Patient Education ED Shingles (H erpes Zoster) [facility] Work Phone: Payers Date Payer Category Payer Self-pay 2024 Medicaid [id number] 2019 Medicaid [id number] 2019 Unknown [facility] [place] MEDICAID [id number] 2019-Present [id number] 1991 Unknown [id number] 1990 Unknown [id number] 1991 Unknown [id number] 1990 Unknown [id number] 1990 Unknown [id number] 1991 Unknown [id number] 1990 Unknown [id number] 1990 Unknown [id number] Unknown [id number] Unknown [id number] Social History Date Type Detail Facility [facility] Start: 1990 Sex Assigned At Not on file [facility] Start: 10-20-2024 Tobacco smoking status Ex-smoker (finding) [facility] Start: 1990 Sex Assigned At Male [facility] Sex Male (finding) [facility] Start: 12-19-2024 Tobacco smoking status AKIS Never smoked tobacco (finding) [facility] Clinical Notes 05-05-2022 to 11-14-2024 Note Date & Type Note Facility 11-14-2024 Note Exam Date Time Procedure Performing Provider Status 11/14/24 1:[address] Abdomen/Pelvis w/o Contrast ST MIKE WOOD DO; Auth (Verified) [id number] ORIGINAL EXAMINATION: CT OF THE ABDOMEN AND PELVIS WITHOUT CONTRAST11/14/2024 1:49 pm TECHNIQUE: CT of the abdomen and pelvis was performed without the administration of intravenous contrast. Multiplanar reformatted images are provided for review. Automated exposure control, iterative reconstruction, and/or weight based adjustment of the mA/kV was utilized to reduce the radiation dose to as low as reasonably achievable. COMPARISON: None HISTORY: ORDERING SYSTEM PROVIDED HISTORY: Reason for Exam: hx of kidney stones, persistent dysuria, feels he has not passed stones FINDINGS: The included lung bases are clear. There is no visible pleural or pericardial effusion. The heart is normal in size. The liver, spleen, adrenal glands, kidneys, gallbladder and pancreas are within normal limits. The large and small bowel are normal in course and caliber. Mild sigmoid diverticulosis observed without acute inflammatory changes. The appendix is normal. No free intraperitoneal fluid or air is identified. The aorta is normal in caliber. There is no lymphadenopathy. The prostate is normal. There is no visible fracture or aggressive osseous lesion. IMPRESSION: 1. No acute intra-abdominal or pelvic process. 2. Mild sigmoid diverticulosis. Interpreted by: Dylan Wood DO Preliminary Report By: Dylan Wood DO Electronically signed By Dylan Wood DO Dictated Date: 11/14/2024 1:55:57 PM Prelim Date: 11/14/2024 1:59:34 PM Sign Date: 11/14/2024 1:59:34 PM Ordering Provider: CELESTINO HAMM Interpreted by: Dylan Wood DO Preliminary Report By: Dylan Wood DO Electronically signed By Dylan Wood DO Dictated Date: 11/14/2024 1:55:57 PM Prelim Date: 11/14/2024 1:59:34 PM Sign Date: 11/14/2024 1:59:34 PM Ordering Provider: CELESTINO HAMM [facility]12-29-2024 NoteDischarge Instructions Discharge Summary [address] [address] [id number] 05/13/2024 [id number] Sex: Male : 1990 Age: 33y Thank you for visiting [facility]. You have been evaluated today by Stefano Pedraza M.D. for the following condition(s): Principal Diagnosis Ureterolithiasis (single stone) in the right ureter with renal colic. INSTRUCTIONS Prescription Medications: Do not take ibuprofen if you are taking the ketorolac. ketorolac 10 mg tablet: Take 1 tablet by mouth twice a day for 5 days, dispense 10 tablet. Refills 1. Pharmacy: [facility] [id number] [id number]. tamsulosin 0.4 mg capsule: Take 1 capsule by mouth once a day for 14 days, dispense 14 capsule. Refills 0. Pharmacy: [facility] [address] [id number]. OTC Medications: Take acetaminophen (Tylenol) according to label instructions. Available over the counter. Follow-up: 1 of 6 Discharge Instructions Follow up with a urologist. Follow up contact number [phone]. Understanding of the discharge instructions verbalized by patient. You have been given the following additional information: Kidney Stone with Pain Patient Signature Facility [employer] Date/Time General Instructions with ExitWriter [address] [address] [id number] 05/13/2024 Patient: FLORECITA SPEARS Sex: Male : 1990 Age: 33y Thank you for visiting [facility]. You have been evaluated today by Stefano Pedraza M.D. for the following condition(s): Principal Diagnosis Ureterolithiasis (single stone) in the right ureter with renal colic. INSTRUCTIONS Prescription Medications: Do not take ibuprofen if you are taking the ketorolac. 2 of 6 Discharge Instructions ketorolac 10 mg tablet: Take 1 tablet by mouth twice a day for 5 days, dispense 10 tablet. Refills 1. Pharmacy: [facility] [id number] [id number]. tamsulosin 0.4 mg capsule: Take 1 capsule by mouth once a day for 14 days, dispense 14 capsule. Refills 0. Pharmacy: [facility] [id number] [place] [address]. OTC Medications: Take acetaminophen (Tylenol) according to label instructions. Available over the counter. Follow-up: Follow up with a urologist. Follow up contact number [phone]. Understanding of the discharge instructions verbalized by patient. ADDITIONAL INFORMATION Kidney Stone with Pain 3 of 6 Discharge Instructions The sharp cramping pain on either side of your lower back and nausea or vomiting that you have are because of a small stone that has formed in the kidney. It's now passing down a narrow tube (ureter) on its way to your bladder. Once the stone reaches your bladder, the pain will often stop. But it may come back as the stone continues to pass out of the bladder and through the urethra. The stone may pass in your urine stream in one piece. The size may be 1/16 inch to 1/4 inch (1 mm to 6 mm). Or, the stone may break up into miriam fragments that you may not even notice. Once you have had a kidney stone, you are at risk of getting another one in the future. There are 4types of kidney stones. Eighty percent are calcium stones--mostly calcium oxalate but also some with calcium phosphate. The other 3 types include uric acid stones, struvite stones (from a preceding infection), and rarely, cystine stones. Most stones will pass on their own, but may take from a few hours to a few days. Sometimes the stone is too large to pass by itself. In that case, the healthcare provider will need to use other ways to remove the stone. These techniques include: Lithotripsy. This uses ultrasound waves to break up the stone. Ureteroscopy. This pushes a basket-like instrument through the urethra and bladder and into the ureter to pull out the stone. Surgery. You may need surgery to remove the stone. Home care The following are general care guidelines: Drink plenty of fluids. This means at least 12, 8-ounce glasses of fluid--mostly water--a day. Each time you urinate, do so in a jar. Pour the urine from the jar through the strainer and into the toilet. Continue doing this until 24 hours after your pain stops. By then, if there was a kidney stone, it should pass from your bladder. Some stones dissolve into sand-like particles and pass right through the strainer. In that case, you won't ever see a stone. Save any stone that you find in the strainer and bring it to your healthcare provider to look at. It may be possible to stop certain (more content not included)...[facility]12-24-2024 NoteDischarge Instructions Discharge Summary [address] [address] [id number] 05/08/2024 Patient: FLORECITA SPEARS Sex: Male : 1990 Age: 33y Thank you for visiting [facility]. You have been evaluated today by Sushma Sotelo D.O. for the following condition(s): Principal Diagnosis Atypical chest pain INSTRUCTIONS No strenuous activity. Warnings: GENERAL WARNINGS: Return or contact your physician immediately if your condition worsens or changes unexpectedly, if not improving as expected, or if other problems arise. Understanding of the discharge instructions verbalized by patient and family. Follow-up with: George Diaz NP, [facility], Adult and Pediatric, Family Care, Phone: [phone], [address] [phone]. Follow up in three days even if well. Call for an appointment. Reason for referral: evaluation and treatment. Summary of care provided to patient and family. You have been given the following additional information: Noncardiac Chest Pain Patient Signature 1 of 5 Discharge Instructions Facility [employer] Date/Time General Instructions with ExitWriter [address] [address] [id number] 05/08/2024 Patient: FLORECITA SPEARS Sex: Male : 1990 Age: 33y Thank you for visiting [facility]. You have been evaluated today by Sushma Sotelo D.O. for the following condition(s): Principal Diagnosis Atypical chest pain INSTRUCTIONS No strenuous activity. Warnings: GENERAL WARNINGS: Return or contact your physician immediately if your condition worsens or changes unexpectedly, if not improving as expected, or if other problems arise. Understanding of the discharge instructions verbalized by patient and family. Follow-up with: George Diaz NP, [facility], Adult and Pediatric, Family Care, Phone: [phone], [address] [phone]. Follow up in three days even if well. Call for an appointment. Reason for referral: evaluation and treatment. Summary of care provided to patient and family. ADDITIONAL INFORMATION 2 of 5 Discharge Instructions Noncardiac Chest Pain Based on your visit today, the healthcare provider doesn't know what is causing your chest pain. Inmost cases, people who come to the emergency room with chest pain don't have a problem with their heart. Instead, the pain is caused by other conditions. It's important for the healthcare team to be sure you are not havinga life-threatening cause for chest pain such as: Heart attack Blood clot in the lungs Collapsed lung Ruptured esophagus Tearing of the aorta Once these major causes have been ruled out, you may have further evaluation for nonheart causes ofchest pain. These may be problems with the lungs, muscles, bones, digestive tract, nerves, or mental health. They include: Inflammation around the lungs (pleurisy) Collapsed lung (pneumothorax) Fluid around the lungs (pleural effusion) Lung cancer (a rare cause of chest pain) Inflamed cartilage between the ribs (costochondritis) Fibromyalgia Rheumatoid arthritis Chest wall strain Reflux Stomach ulcer Spasms of the esophagus 3 of 5 Discharge Instructions Gall stones Gallbladder inflammation Panic or anxiety attacks Emotional distress Your condition doesn't seem serious. And your pain doesn't seem to be coming from your heart. But sometimes the signs of a serious problem take more time to appear. Watch for the warning signs listed below. Home care Follow these guidelines when caring for yourself at home: Rest today and don't do any strenuous activity. Take any prescribed medicine as directed. Follow-up care Follow up with your healthcare provider, or as advised, if you don't start to feel better in 24 hours. Call 911 Call 911 if any of these occur: A change in the type of pain: if it feels different, becomes more severe, lasts longer, or begins to spread into your shoulder, arm, neck, jaw or back Shortness of breath or increased pain with breathing Weakness, dizziness, or fainting Rapid heart beat Crushing sensation in your chest When to seek medical advice Call your healthcare provider right away if any of these occur: Cough with dark colored sputum (phlegm) or blood Fever of 100.4F (38C) or higher, or as directed by your healthcare provider Swelling, pain or redness in one leg 4 of 5 Discharge Instructions Activities Restrictions [address] [address] [id number] 05/08/2024 Patient: FLORECITA SPEARS Sex: Male : 1990 Age: 33y You have been given the following instructions regarding activity (more content not included)...[facility]12-24-2024 NoteDischarge Instructions Discharge Summary [address] [address] [id number] 05/09/2024 Patient: FLORECITA SPEARS Sex: Male : 1990 Age: 33y Thank you for visiting [facility]. You have been evaluated today by Sushma Sotelo D.O. for the following condition(s): Principal Diagnosis Ureterolithiasis (single stone) in the left ureter with hydronephrosis. INSTRUCTIONS No strenuous activity. Drink plenty of fluids. (Strain all urine. Take medication as prescribed.). Warnings: GENERAL WARNINGS: Return or contact your physician immediately if your condition worsens or changes unexpectedly, if not improving as expected, or if other problems arise. Prescription Medications: hydrocodone 5 mg-acetaminophen 325 mg tablet: Take 1 tablet by mouth every six hours as needed for pain for 3 days, dispense 12 tablet. Refills 0. Pharmacy: [facility] [address] [place] [address]. ondansetron 4 mg disintegrating tablet: Take 1 tablet on tongue every eight hours for nausea/vomiting for 5 days, dispense 15 tablet. Refills 0. Pharmacy: [facility] [address] [place] [address]. 1 of 7 Discharge Instructions Flomax 0.4 mg capsule: Take 1 capsule by mouth once a day for 10 days, dispense 10 capsule. Refills0. Pharmacy: [facility] [address] [place] [address]. Understanding of the discharge instructions verbalized by patient and family. Follow-up with: George Diaz INFORMATION OPERATOR, [facility], Adult and Pediatric, Family Care, Phone: [phone], [address] [facility] [address], [place] [address]. You have been given the following additional information: Kidney Stone with Pain Patient Signature Facility [employer] Date/Time General Instructions with ExitWriter [facility] [address] [place] [address] [id number] 05/09/2024 Patient: FLORECITA SPEARS Sex: Male : 1990 Age: 33y Thank you for visiting [facility]. You have been evaluated today by Sushma Sotelo D.O. for the following condition(s): Principal Diagnosis Ureterolithiasis (single stone) in the left ureter with hydronephrosis. INSTRUCTIONS 2 of 7 Discharge Instructions No strenuous activity. Drink plenty of fluids. (Strain all urine. Take medication as prescribed.). Warnings: GENERAL WARNINGS: Return or contact your physician immediately if your condition worsens or changes unexpectedly, if not improving as expected, or if other problems arise. Prescription Medications: hydrocodone 5 mg-acetaminophen 325 mg tablet: Take 1 tablet by mouth every six hours as needed for pain for 3 days, dispense 12 tablet. Refills 0. Pharmacy: [facility] [address] [place] [address]. ondansetron 4 mg disintegrating tablet: Take 1 tablet on tongue every eight hours for nausea/vomiting for 5 days, dispense 15 tablet. Refills 0. Pharmacy: [facility] [id number] [place] [address]. Flomax 0.4 mg capsule: Take 1 capsule by mouth once a day for 10 days, dispense 10 capsule. Refills0. Pharmacy: [facility] [address] [place] [address]. Understanding of the discharge instructions verbalized by patient and family. Follow-up with: George Diaz NP, [facility], Adult and Pediatric, Family Care, Phone: [phone], [address] [phone]. ADDITIONAL INFORMATION 3 of 7 Discharge Instructions Kidney Stone with Pain The sharp cramping pain on either side of your lower back and nausea or vomiting that you have are because of a small stone that has formed in the kidney. It's now passing down a narrow tube (ureter) on its way to your bladder. Once the stone reaches your bladder, the pain will often stop. But it may come back as the stone continues to pass out of the bladder and through the urethra. The stone may pass in your urine stream in one piece. The size may be 1/16 inch to 1/4 inch (1 mm to 6 mm). Or, the stone may break up into miriam fragments that you may not even notice. Once you have had a kidney stone, you are at risk of getting another one in the future. There are 4types of kidney stones. Eighty percent are calcium stones--mostly calcium oxalate but also some with calcium phosphate. The other 3 types include uric acid stones, struvite stones (from a preceding infection), and rarely, cystine stones. Most stones will pass on their own, but may take from a few hours to a few days. Sometimes the stone is too large (more content not included)...[facility]12-20-2022 History of Present illness Narrative* Nancy Michelle MD - 05/05/2022 11:06 AM EST [id number] * Jackie Bowling RN - 05/04/2022 12:44 PM EST Identification was verified by patient verbalizing his name and date of . [facility] Future Appointments Appointment Date:11/29/2024 04:00:00 PM Scheduled Provider:CELESTINO HAMM Location:UROLOGY Appointment Type:URO OV Future Scheduled Tests Laboratory* Pathology Non-Cushion Gum Applicator Request 10/20/24 Radiology* CT Abdomen and Pelvis w/o contrast 10/20/24 [facility] Evaluation + Plan note Future Appointments Appointment Date:11/29/2024 04:00:00 PM Scheduled Provider:CELESTINO HAMM Location:UROLOGY Appointment Type:URO OV Future Scheduled Tests Laboratory* Pathology Non-Cushion Gum Applicator Request 10/20/24 [facility] Evaluation note* Diagnosis Hematospermia- Primary Pelvic pain Unspecified symptom associated with female genital organs documented in this encounter [facility] noteNo assessment information availableWGalion Hospital Work Phone: Hospital course Narrative No data available for this section [facility] Discharge instructions No data available for this section [facility] Hospital Discharge instructionsAdditional Instructions You may use Zostrix cream as needed for pain. You may take Tylenol or ibuprofen as needed for pain as well.[facility] Work Phone: Progress note No data available for this section [facility] Reason for referral (narrative)No reason for referral information availableWGalion Hospital Work Phone: Summary Purpose Family History No Family History Records FoundNo Family History Records Found No data available for this section No Family History Records FoundNo Family History Records Found No data available for this section No Family History Records FoundNo Family History Records Found Advance Directives No Advanced Directives Records Found Advance Directive Response Recorded Date/ Time Do you have a Healthcare Power of Resistor Tester? No December 19, 2024 4:23pm Chief Complaint and Reason for Visit Chief Complaint Admit Date RASH December 19, 2024 4:1 3pm Additional Source Comments (unrecognized sect ion and content) No Status Records FoundNo Status Records FoundNo Status Records FoundNo Status Records FoundNo Status Records FoundNo Status Records Found INFORMATION SOURCE (unrecogn ized section and content) DATE CREATED AUTHOR 03/23/2021 [facility] DATE CREATED AUTHOR AUTHOR'S ORGANIZ ATION 05/15/2022 [employer] [facility] DATE CREATED AUTHOR AUTHOR'S ORGANIZ ATION 10/22/2024 [facility] DATE CREATED AUTHOR AUTHOR'S ORGANIZ ATION 11/09/2024 [facility] DATE CREATED AUTHOR AUTHOR'S ORGANIZ ATION 11/16/2024 [facility] DATE CREATED AUTHOR AUTHOR'S ORGANIZ ATION 12/26/2024 [facility] Reason for Visit (unrecogniz ed section and content) Reason Comments New patient, to establish relationship Camilla quiroz inside, thinks it's his prostate Patient Care team informatio n (unrecognized section and content) Team Status: Active Member Role/Relationship Status Dates No Primary Care Physician Primary Care Provider Active Team Status: Inactive Member Role/Relationship Status Dates No Primary Care Physician Primary Care Provider Active Start: December 19, 2024 End: December 19, 2024 Dr. Jose E Cifuentes , DO Emergency Provider Active Start: December 19, 2024 End: December 19, 2024 Goals (unrecognized section and content) Goals may be documented in a n alternate section FOR RECORDS PERTAINING TO PATIENTS WHO ARE OR HAVE BEEN ENROLLED IN A CHEMICAL DEPENDENCY/SUBSTANCEABUSE PROGRAM, SOME INFORMATION MAY BE OMITTED. This clinical summary was aggregated from multiple sources. Caution should be exercised in using it in the provision of clinical care. This summary normalizes information from multiple sources, and as a consequence, information in this document may materially change the coding, format and clinical context of patient data. In addition, data may be omitted in some cases. CLINICAL DECISIONS SHOULD BE BASED ON THE PRIMARY CLINICAL RECORDS. [email or web address] [facility]. provides no warranty or guarantee of the accuracy or completeness of information in this document.
[2025-01-06 21:03] LABS: Mucous, Urine 0 SEEN /hpf (<or=2+)
[2025-01-06 21:04] LABS: Color, Urine Yellow (Yellow); Glucose, Dipstick Normal (Normal); Ketone-Dipstick Negative (Negative); Leukocyte Esterase-Dipstick Negative /ul (Negative); Nitrite-Dipstick Negative (Negative); Occult Blood-Urine Negative /ul (Negative); Protein-Dipstick 15 mg/dl (Negative); Specific Gravity, Urine 1.015 (1.002-1.030); Urine Bilirubin Dipstick Negative (Negative)
[2025-01-06 21:10] VITALS: BP 118/72; BP 118/73; PULSE 75; RESP 16; O2SAT 99
[2025-01-06 21:11] LABS: Lipase 31 U/L (13-75)
[2025-01-06 21:17] LABS: Red Blood Cells-Urine 0-5 SEEN /hpf (0-5); Squamous Epithelial Cells - UA 0-5 SEEN /hpf (0-5)
[2025-01-06 21:27] LABS: AST(SGOT) 23 U/L (<=37); Alanine Aminotransfer ALT/SGPT 13 U/L (<=46); Albumin, Serum 4.5 g/dL (3.5-5.0); Alkaline Phosphatase 73 U/L (40-129); Anion Gap 13 (5-15); BUN 9 mg/dL (4-19); BUN/Creat Ratio 8.9 RATIO (10-20); Calcium,Total 9.7 mg/dL (7.6-11.0); Carbon Dioxide 23.5 mmol/L (21.0-32.0); Chloride 105 mmol/L (98-108); Estimated Creatinine Clearance 93.86 ml/min (50-250); Globulin 3.5 g/dL (2.2-4.2); Glucose 77 mg/dL (70-99); Potassium 3.6 mmol/L (3.3-5.1)
[2025-01-06 23:35] VITALS: BP 128/92; PULSE 80; RESP 16; TEMP 36.7; O2SAT 100
== END 2025-01-06 23:40 | disposition home or self-care (01) ==
PROVIDERS: Emergency Provider Emergency Medicine; Visit Provider Emergency Medicine
DX: R10.11 Right upper quadrant pain (principal); R11.0 Nausea
CPT/HCPCS: 76705; 80053; 81001; 83690; 85025; 99282; A4216